=== PATIENT | male | born 1945 | race Caucasian/White ===

== ENCOUNTER → 2016-10-28 | Outpatient (CLI) | payer MEDICARE, BC ==
[~2016-10-28] MED LIST: IOHEXOL 300 MG/ML 75 ML VIAL. IV ONE
--- NOTE | 2016-10-28 10:30 | RAD ---
Difficulty breathing. Contrast imaging through the chest was performed. IV contrast, approximately 75 cc of Omnipaque 300 was administered. MIP images were generated and reviewed. No prior CT imaging of the chest is available. Imaging through the upper abdomen is unremarkable. The thoracic aorta appears unremarkable. No pulmonary emboli are seen. There are a few mediastinal and right hilar lymph nodes. Definite pathologic mediastinal or hilar adenopathy is not seen. There is a small left and a minute right pleural effusion. A dominant soft tissue mass in either lung is not seen. No consolidated pneumonia is seen. Advanced emphysematous or fibrotic changes are not seen. There are occasional small nodules in the left upper lobe. These could be followed along the lines of the Fleischner criteria. Some slight volume loss is seen at the left lung base which may reflect atelectasis or scar. IMPRESSION: Small left and minute right pleural effusions. Minimal volume loss at the left lung base likely reflecting atelectasis or scar. Occasional small pulmonary nodules in the left upper lobe measuring approximately 2 mm in size. Follow-up imaging along the lines of the Fleischner criteria should be considered. Mild mediastinal and right hilar adenopathy. PQRS Compliance Statement: One or more of the following individualized dose reduction techniques were utilized for this examination: 1. Automated exposure control 2. Adjustment of the mA and/or kV according to patient size 3. Use of iterative reconstruction technique
== END | disposition home or self-care (01) ==
LOC: CT 09:15
PROVIDERS: ATTEND Family Medicine
DX: J84.17 Other interstitial pulmonary diseases with fibrosis in diseases classified elsewhere (principal); J90 Pleural effusion, not elsewhere classified; R91.8 Other nonspecific abnormal finding of lung field; R59.0 Localized enlarged lymph nodes; I11.0 Hypertensive heart disease with heart failure; I50.9 Heart failure, unspecified; J45.909 Unspecified asthma, uncomplicated; Z79.01 Long term (current) use of anticoagulants; Z95.1 Presence of aortocoronary bypass graft
CPT/HCPCS: 71260; Q9967

== ENCOUNTER → 2018-01-23 | Outpatient (CLI) | payer MEDICARE, BC ==
[~2018-01-23] MED LIST changes: +IOHEXOL 240 MG/ML 50ML VIAL. ONE
[2018-01-23 10:32] LABS: BASO # 0.1 x10^3/uL (0.0-0.2); BASO % 1 % (0-3); EOS # 0.1 x10^3/uL (0.0-0.7); EOS % 2 % (0-3); HEMATOCRIT 36.3 % (39.0-53.0); HEMOGLOBIN 12.2 g/dL (13.0-17.5); LYMPH # 1.5 x10^3/uL (1.0-4.8); LYMPH % 21 % (24-48); MEAN CORPUSCULAR HEMOGLOBIN 31 pg (25-35); MEAN CORPUSCULAR HGB CONC 34 g/dL (31-37); MEAN CORPUSCULAR VOLUME 92 fL (79-100); MONO # 0.8 x10^3/uL (0.0-1.1); MONO % 11 % (0-9); NEUT # 4.7 x10^3uL (1.8-7.7); NEUT % 65 % (31-73); PLATELET COUNT 145 x10^3/uL (140-400); RED BLOOD COUNT 3.94 x10^6/uL (4.30-5.70); RED CELL DISTRIBUTION WIDTH 15.4 % (11.5-14.5); WHITE BLOOD COUNT 7.2 x10^3/uL (4.0-11.0)
[2018-01-23 10:51] LABS: ALBUMIN 3.2 g/dL (3.4-5.0); ALBUMIN/GLOBULIN RATIO 0.8 (1.0-1.7); CALCIUM 8.5 mg/dL (8.5-10.1); CREATININE 1.2 mg/dL (0.7-1.3); GFR 59.2; POTASSIUM 4.1 mmol/L (3.5-5.1); TOTAL BILIRUBIN 0.6 mg/dL (0.2-1.0); TOTAL PROTEIN 7.3 g/dL (6.4-8.2)
--- NOTE | 2018-01-23 15:08 | RAD ---
CT of the abdomen and pelvis with contrast 01/23/2018 INDICATION: Weight loss. COMPARISON STUDY: CT of the chest October 28, 2016. TECHNIQUE: Multidetector CT imaging of the abdomen and pelvis was obtained following the administration of IV contrast. Enteric contrast was also administered. FINDINGS: Visualized portions of the lung bases demonstrate at least moderate left pleural effusion with underlying compressive atelectasis. The liver gallbladder grossly unremarkable. The adrenal glands, spleen, and pancreas are grossly unremarkable. The bilateral kidneys demonstrate minimal nonspecific stranding are otherwise unremarkable. The bladder is partially decompressed but otherwise unremarkable. The prostate is enlarged with areas of coarse calcification. There is no evidence of bowel obstruction. No evidence of acute inflammatory change involving the bowel is appreciated. Extensive descending and sigmoid colonic diverticulosis is noted. Mildly increased stool seen throughout the colon. Correlate with evidence of constipation. The appendix is grossly unremarkable. No free fluid or free air is seen in the abdomen or pelvis. Significant diffuse atherosclerotic vascular disease is noted. No acute osseous abnormality is identified. IMPRESSION: 1.No evidence of acute intra-abdominal abnormality is identified 2. At least moderate left pleural effusion with underlying compressive atelectasis. 3. Prostamegaly there is a calcification. 4. Descending and sigmoid colonic diverticulosis. CT DOSING PQRS STATEMENT: One or more of the following individualized dose reduction techniques were utilized for this examination: 1. Automated exposure control 2. Adjustment of the mA and/or kV according to patient size 3. Use of iterative reconstruction technique. Electronically signed by: Carson Joyner MD (01/23/2018 3:05 PM) [id number]
[2018-01-23 21:07] LABS: HEMOGLOBIN A1C 7.1 % (4.8-5.6)
[2018-01-25 00:08] LABS: MICRO CREAT RATIO 35.1 mg/g creat (0.0-30.0); MICROALB RD UR 37.4 ug/mL (Not Estab.)
== END | disposition home or self-care (01) ==
LOC: CT 09:06
PROVIDERS: ATTEND Family Medicine
DX: J90 Pleural effusion, not elsewhere classified (principal); K57.30 Diverticulosis of large intestine without perforation or abscess without bleeding; J98.11 Atelectasis; I70.0 Atherosclerosis of aorta; Z88.0 Allergy status to penicillin
CPT/HCPCS: 36415; 74177; 80053; 80061; 82043; 82570; 83036; 85025; Q9966; Q9967

== ENCOUNTER → 2018-02-16 | Outpatient (CLI) | payer MEDICARE, BC ==
--- NOTE | 2018-02-16 13:03 | RAD ---
Examination: CT chest without contrast HISTORY: History of pulmonary infiltrates status post surgery COMPARISON: 10/28/2016 TECHNIQUE: Axial CT images of chest were performed without contrast. Coronal and sagittal reformats are performed Exposure: One or more of the following individualized dose reduction techniques were utilized for this examination: 1. Automated exposure control 2. Adjustment of the mA and/or kV according to patient size 3. Use of iterative reconstruction technique FINDINGS: The visualized thyroid gland grossly appears unremarkable. The central airways are patent. Mild cardiomegaly. Coronary artery calcifications identified. There are patchy airspace opacities identified in the left lung base and in the left lingula likely atelectasis or infiltrates. Moderate left-sided pleural effusion identified.. The visualized noncontrasted liver, spleen, adrenals grossly appears unremarkable. Moderate degenerative changes thoracic spine. IMPRESSION: 1. Patchy airspace opacities identified in the left lingula and left lower lobe lung likely pneumonia or atelectasis. Follow-up to resolution. 2. Mild to moderate left-sided pleural effusion. 3. Coronary artery calcifications. Electronically signed by: Pradeep Ruiz MD (02/16/2018 1:00 PM) [facility]
== END | disposition home or self-care (01) ==
LOC: EDBD 11:35 → CT 11:35
PROVIDERS: ATTEND Internal Medicine Pulmonary Disease
DX: J90 Pleural effusion, not elsewhere classified (principal); I25.10 Atherosclerotic heart disease of native coronary artery without angina pectoris; I51.7 Cardiomegaly; R91.8 Other nonspecific abnormal finding of lung field
CPT/HCPCS: 71250

== ENCOUNTER → 2018-06-14 | Outpatient (CLI) | payer MEDICARE, BC ==
[2018-06-14 16:37] LABS: CALCIUM 8.2 mg/dL (8.5-10.1); CREATININE 1.4 mg/dL (0.7-1.3); GFR 49.5; POTASSIUM 3.4 mmol/L (3.5-5.1)
[2018-06-14 17:29] LABS: BASO % 1 % (0-3); EOS % 1 % (0-3); HEMATOCRIT 37.4 % (39.0-53.0); HEMOGLOBIN 12.8 g/dL (13.0-17.5); LYMPH # 1.2 x10^3/uL (1.0-4.8); LYMPH % 20 % (24-48); MEAN CORPUSCULAR HEMOGLOBIN 30 pg (25-35); MEAN CORPUSCULAR HGB CONC 34 g/dL (31-37); MEAN CORPUSCULAR VOLUME 88 fL (79-100); MONO # 0.5 x10^3/uL (0.0-1.1); MONO % 9 % (0-9); NEUT # 4.1 x10^3uL (1.8-7.7); NEUT % 70 % (31-73); PLATELET COUNT 168 x10^3/uL (140-400); RED BLOOD COUNT 4.27 x10^6/uL (4.30-5.70); RED CELL DISTRIBUTION WIDTH 15.3 % (11.5-14.5); WHITE BLOOD COUNT 5.9 x10^3/uL (4.0-11.0)
--- NOTE | 2018-06-14 17:44 | RAD ---
EXAM: CT Abdomen and Pelvis with IV contrast CLINICAL HISTORY: DIARRHEA AND VOMITING COMPARISON: 02/16/2018, 01/23/2018 TECHNIQUE: Helical CT of the abdomen and pelvis was performed following the administration of intravenous contrast. Axial, coronal and sagittal reformatted images were generated. PQRS compliance statement - One or more of the following individualized dose reduction techniques were utilized for this study: 1. Automated exposure control 2. Adjustment of the mA and/or kV according to patient size 3. Use of iterative reconstruction technique FINDINGS: Lower chest: Small left pleural effusion. Dependent opacities in the left lower lobe likely atelectasis. Right lung base is clear. Abdomen and Pelvis: No focal liver lesion. Gallbladder is normal. No biliary ductal dilatation. Spleen is unremarkable. Adrenal glands and pancreas are unremarkable. Symmetric nephrograms. No focal renal lesion. No hydronephrosis. Appendix is normal. No small or large bowel dilatation. No evidence of bowel obstruction. Moderate colonic stool content. Colonic diverticulosis without evidence for acute diverticulitis. Bladder is unremarkable. Dense atherosclerotic calcifications of aorta without aneurysmal dilatation. No abdominal pelvic ascites. No abdominal or pelvic lymphadenopathy. Small fat-containing right inguinal hernia. Bladder wall thickening with minimal associated fatty filtration, likely cystitis. Bones: Diffusely decreased bone mineral density. Multilevel degenerative changes of the spine are seen. IMPRESSION: 1. Diverticulosis without evidence for acute diverticulitis. 2. No evidence for bowel obstruction. 3. Mild bladder wall thickening may be seen with cystitis. Electronically signed by: Saqib Cates MD (06/14/2018 5:41 PM) [facility]
== END | disposition home or self-care (01) ==
LOC: CT 15:52
PROVIDERS: ATTEND Family Medicine
DX: K57.30 Diverticulosis of large intestine without perforation or abscess without bleeding (principal); K40.90 Unilateral inguinal hernia, without obstruction or gangrene, not specified as recurrent; I70.0 Atherosclerosis of aorta; J90 Pleural effusion, not elsewhere classified; I11.0 Hypertensive heart disease with heart failure; I50.9 Heart failure, unspecified; E11.9 Type 2 diabetes mellitus without complications; Z79.01 Long term (current) use of anticoagulants
CPT/HCPCS: 36415; 74177; 80048; 85025; Q9967

== ENCOUNTER 2018-09-15 09:08 | Inpatient (IN) | payer MEDICARE, BC ==
[~2018-09-15] VITALS: Ht 170.2 cm; Wt 64.2 kg
[2018-09-15] MEDS ORDERED: IV NORMAL SALINE 1,000ML 1,000 ML IV ONE (09:15)
--- NOTE | 2018-09-15 09:40 | PHYS DOC ---
Past History Past Medical History: Diabetes, High Cholesterol, Hypertension, HI, Stroke, Other Past Surgical History: Other Alcohol Use: None Drug Use: None Adult General Chief Complaint Chief Complaint: WEAKNESS/GENERALIZED HPI HPI 73-year-old male presents via EMS with weakness and bilateral knee pain. The patient tells me that he has been feeling weak for a few days. His who accompanies him states that he's been getting around okay until this morning when he could barely get around the bedroom. The patient tells me that the reason is he has bilateral knee pain, worse on the left. He does not state any trauma or falls. He is not exactly clear on whether this pain has been building over time or is sudden. He denies fever or chills. He denies cough, dysuria, urinary frequency. Review of Systems Review of Systems Constitutional: Denies fever or chills [] Eyes: Denies change in visual acuity, redness, or eye pain [] HENT: Denies nasal congestion or sore throat [] Respiratory: Denies cough or shortness of breath [] Cardiovascular: No additional information not addressed in HPI [] GI: Denies abdominal pain, nausea, vomiting, bloody stools or diarrhea [] : Denies dysuria or hematuria [] Musculoskeletal: Bilateral knee pain Integument: Denies rash or skin lesions [] Neurologic: Denies headache, focal weakness or sensory changes [] Endocrine: Denies polyuria or polydipsia [] All other systems were reviewed and found to be within normal limits, except as documented in this note. Current Medications Current Medications Current Medications Medications (Trade) Dose Ordered Sig/[facility] Start Time Stop Time Status Last Admin Dose Admin Sodium Chloride 1,000 ml @ 1,000 mls/hr 1X ONCE 09/15/18 09:15 09/15/18 10:14 Allergies Allergies Allergies Coded Allergies Type Severity Reaction Last Updated Verified Penicillins Allergy Unknown 10/28/16 Yes Sulfa (Sulfonamide Antibiotics) Allergy Unknown 10/28/16 Yes Physical Exam Physical Exam Constitutional: Well developed, well nourished, no acute distress, non-toxic appearance. [] HENT: Normocephalic, atraumatic, bilateral external ears normal, oropharynx moist, no oral exudates, nose normal. [] Eyes: PERRLA, EOMI, conjunctiva normal, no discharge. [] Neck: Normal range of motion, no tenderness, supple, no stridor. [] Cardiovascular:Heart rate regular rhythm, no murmur [] Lungs & Thorax: Bilateral breath sounds clear to auscultation [] Abdomen: Bowel sounds normal, soft, no tenderness, no masses, no pulsatile masses. [] Skin: Warm, dry, no erythema, no rash. Age-related skin changes.[] Back: No tenderness, no CVA tenderness. [] Extremities: No tenderness, no cyanosis, no clubbing, ROM intact, no edema. [] Neurologic: Alert and oriented X 3, normal motor function, normal sensory function, no focal deficits noted. [] Psychologic: Affect normal, judgement normal, mood normal. [] Current Patient Data Vital Signs Vital Signs Date Time Temp Pulse Resp B/P (MAP) Pulse Ox O2 Delivery O2 Flow Rate FiO2 09/15/18 09:24 97.9 87 20 96 Room Air EKG EKG Sinus rhythm, rate 85, normal axis, no ST elevations or depressions.[] Radiology/Procedures Radiology/Procedures [] Impressions: EXAM: CHEST 1 VIEW. HISTORY: Weakness. COMPARISON: 02/16/2018. FINDINGS: A frontal view of the chest is obtained. Opacity in the left base is consistent with a small to moderate pleural effusion along with scarring as seen on prior CT. A right posterior fifth rib fracture appears acute or subacute. There is no pneumothorax. The heart is mildly enlarged. There are changes of coronary artery bypass grafting. IMPRESSION: 1. Chronic small left pleural effusion with adjacent parenchymal scarring. 2. A right fifth rib fracture appears acute to subacute. 3. Mild cardiomegaly. Electronically signed by: Lilly Snow MD (09/15/2018 9:54 AM) [facility] DICTATED AND SIGNED BY: SUSANNE SNOW MD DATE: 09/15/18 0954 CC: ANTONI PLUMMER DO; AMARJIT TRIMBLE MD ~ Course & Med Decision Making Course & Med Decision Making Pertinent Labs and Imaging studies reviewed. (See chart for details) The patient's chest x-ray shows possibly new right sided fifth rib fracture. Other findings. We chronic. See official report for more details. The patient's labs are significant for an elevated potassium of 6.1. He does not appear to have EKG changes. His creatinine is 1.5 with a BUN 43. The patient was given 1 L normal saline on arrival. We will additionally give 1 g of calcium, 500 mL of D 10 with 20 units of insulin, and 40 mg of Lasix IV. I will admit the patient to the hospital. Spoke with Dr. Trimble and he has agreed to admit the patient for further management. [] Dragon Disclaimer Dragon Disclaimer This electronic medical record was generated, in whole or in part, using a voice recognition dictation system. Departure Departure: Impression: Primary Impression: Hyperkalemia Disposition: ADMITTED INPATIENT Admitting Physician: Amarjit Trimble Condition: STABLE Referrals: AMARJIT TRIMBLE MD (PCP) ANTONI PLUMMER DO Sep 15, 2018 09:40
--- NOTE | 2018-09-15 09:57 | RAD ---
EXAM: CHEST 1 VIEW. HISTORY: Weakness. COMPARISON: 02/16/2018. FINDINGS: A frontal view of the chest is obtained. Opacity in the left base is consistent with a small to moderate pleural effusion along with scarring as seen on prior CT. A right posterior fifth rib fracture appears acute or subacute. There is no pneumothorax. The heart is mildly enlarged. There are changes of coronary artery bypass grafting. IMPRESSION: 1. Chronic small left pleural effusion with adjacent parenchymal scarring. 2. A right fifth rib fracture appears acute to subacute. 3. Mild cardiomegaly. Electronically signed by: Lilly Snow MD (09/15/2018 9:54 AM) [facility]
[2018-09-15 10:24] LABS: ALBUMIN 3.5 g/dL (3.4-5.0); ALBUMIN/GLOBULIN RATIO 0.9 (1.0-1.7); BASO # 0.1 x10^3/uL (0.0-0.2); BASO % 1 % (0-3); CALCIUM 9.3 mg/dL (8.5-10.1); CREATININE 1.5 mg/dL (0.7-1.3); EOS # 0.1 x10^3/uL (0.0-0.7); EOS % 1 % (0-3); GFR 45.6; HEMATOCRIT 31.1 % (39.0-53.0); HEMOGLOBIN 10.6 g/dL (13.0-17.5); LYMPH # 1.1 x10^3/uL (1.0-4.8); LYMPH % 14 % (24-48); MEAN CORPUSCULAR HEMOGLOBIN 31 pg (25-35); MEAN CORPUSCULAR HGB CONC 34 g/dL (31-37); MEAN CORPUSCULAR VOLUME 93 fL (79-100); MONO # 0.7 x10^3/uL (0.0-1.1); MONO % 9 % (0-9); NEUT # 5.9 x10^3uL (1.8-7.7); NEUT % 75 % (31-73); PLATELET COUNT 157 x10^3/uL (140-400); RED BLOOD COUNT 3.36 x10^6/uL (4.30-5.70); RED CELL DISTRIBUTION WIDTH 16.4 % (11.5-14.5); TOTAL BILIRUBIN 0.5 mg/dL (0.2-1.0); TOTAL PROTEIN 7.4 g/dL (6.4-8.2); WHITE BLOOD COUNT 7.9 x10^3/uL (4.0-11.0)
[2018-09-15 10:26] LABS: POTASSIUM 6.1 mmol/L (3.5-5.1)
[2018-09-15] MEDS ORDERED: IV DEXTROSE 10% 500 ML IV ONE (10:30)
[2018-09-15] MEDS ORDERED: ONDANSETRON PF 4 MG/2 ML VIAL. IV PRN (10:45)
--- NOTE | 2018-09-15 11:14 | RAD ---
EXAM: KNEE BILAT 3V. HISTORY: Bilateral knee pain and weakness. COMPARISON: None. FINDINGS: No fractures are identified bilaterally. Joint spaces and alignment are maintained bilaterally. Trace joint effusions are present bilaterally. There are dense atherosclerotic calcifications bilaterally. Vascular clips project throughout the left medial leg. IMPRESSION: 1. Trace bilateral joint effusions. No fracture or clear degenerative change for patient age. Electronically signed by: Lilly Snwo MD (09/15/2018 11:11 AM) [facility]
[2018-09-15] MEDS ORDERED: CALCIUM GLUCONATE 1,000 MG/10 ML VIAL IV ONE (11:15)
[2018-09-15] MEDS ORDERED: FUROSEMIDE 40 MG/4 ML VIAL IVP ONE (11:15)
[2018-09-15] MEDS ORDERED: INSULIN REGULAR 100 UNIT/ML 3ML VIAL. IV ONE (11:15)
[2018-09-15] MEDS ORDERED: DEXTROSE 10% IV ONE (11:30)
[2018-09-15] MEDS ORDERED: INSULIN REGULAR IV ONE (11:30)
[2018-09-15] MEDS ORDERED: ISOS60TA2 PO (11:42)
[2018-09-15] MEDS ORDERED: ATOR80TA72 PO (11:42)
[2018-09-15] MEDS ORDERED: CARV6.253 PO (11:42)
[2018-09-15] MEDS ORDERED: TORS20TA2 PO (11:42)
[2018-09-15] MEDS ORDERED: METF500T16 PO (11:42)
[2018-09-15] MEDS ORDERED: LISI-334 PO (11:42)
[2018-09-15 12:48] LABS: BACTERIA,URINE 0 /HPF (0-FEW); BILIRUBIN,URINE NEG (NEG); CLARITY,URINE CLEAR; COLOR,URINE YELLOW; GLUCOSE,URINE NEG (NEG); NITRITE,URINE NEG (NEG); RBC,URINE OCC /HPF (0-2); SQUAMOUS EPITHELIAL CELL,UR OCC /LPF; UROBILINOGEN,URINE 0.2 mg/dL (0.2 mg/dL); WBC,URINE RARE /HPF (0-4)
[2018-09-15 13:00] VITALS: BP 112/64
[2018-09-15] MEDS ORDERED: TIOT4MIS3 INH (13:49)
[2018-09-15] MEDS ORDERED: SPIR25TA5 PO (13:49)
[2018-09-15 13:58] LABS: CALCIUM 9.5 mg/dL (8.5-10.1); CREATININE 1.4 mg/dL (0.7-1.3); GFR 49.4
[2018-09-15 19:30] VITALS: BP 138/88
[2018-09-15] MEDS ORDERED: OLODATEROL HCL INH PRN (19:30)
[2018-09-15] MEDS ORDERED: TIOTROPIUM BR INH PRN (19:30)
[2018-09-15] MEDS: ATORVASTATIN CALCIUM 20 MG TABLET PO SCH (21:11)
[2018-09-15] MEDS: CARVEDILOL 6.25 MG TABLET PO SCH (21:11)
[2018-09-15 23:18] VITALS: BP 119/63
[2018-09-16 05:27] VITALS: BP 120/57
[2018-09-16 07:04] LABS: BASO % 1 % (0-3); EOS # 0.2 x10^3/uL (0.0-0.7); EOS % 3 % (0-3); HEMOGLOBIN 10.2 g/dL (13.0-17.5); LYMPH # 1.1 x10^3/uL (1.0-4.8); LYMPH % 20 % (24-48); MEAN CORPUSCULAR HEMOGLOBIN 31 pg (25-35); MEAN CORPUSCULAR HGB CONC 34 g/dL (31-37); MEAN CORPUSCULAR VOLUME 93 fL (79-100); MONO # 0.6 x10^3/uL (0.0-1.1); MONO % 10 % (0-9); NEUT # 3.8 x10^3uL (1.8-7.7); NEUT % 67 % (31-73); PLATELET COUNT 152 x10^3/uL (140-400); RED BLOOD COUNT 3.24 x10^6/uL (4.30-5.70); RED CELL DISTRIBUTION WIDTH 15.8 % (11.5-14.5); WHITE BLOOD COUNT 5.8 x10^3/uL (4.0-11.0)
[2018-09-16 07:21] LABS: ALBUMIN 3.2 g/dL (3.4-5.0); ALBUMIN/GLOBULIN RATIO 0.9 (1.0-1.7); CALCIUM 9.2 mg/dL (8.5-10.1); CREATININE 1.3 mg/dL (0.7-1.3); GFR 53.8; POTASSIUM 5.1 mmol/L (3.5-5.1); TOTAL BILIRUBIN 0.5 mg/dL (0.2-1.0); TOTAL PROTEIN 6.9 g/dL (6.4-8.2)
[2018-09-16] MEDS: metFORMIN 500 MG TABLET PO SCH ×2 (08:35→16:51)
[2018-09-16] MEDS: TORSEMIDE 20 MG TABLET. PO SCH (08:35)
[2018-09-16] MEDS: CARVEDILOL 6.25 MG TABLET PO SCH ×2 (08:36→16:51)
[2018-09-16] MEDS: LISINOPRIL 20 MG TABLET PO SCH (08:38)
[2018-09-16] MEDS: ISOSORBIDE MONONITRATE ER 30 MG TAB.ER.24H PO SCH (08:38)
[2018-09-16] MEDS ORDERED: SPIRONOLACTONE 25 MG TABLET PO SCH (09:00)
[2018-09-16] MEDS ORDERED: ACETAMINOPHEN 500 MG TABLET PO PRN (12:00)
[2018-09-16 16:20] VITALS: BP 117/61
[2018-09-16 16:22] VITALS: BP 117/61
--- NOTE | 2018-09-16 18:26 | HP ---
ADMIT DATE: 09/15/2018 HISTORY OF PRESENT ILLNESS: A 73-year-old male in with generalized weakness, unable to stand up. He has become increasingly debilitated and unable to move. The patient notes he has had a gradual decrease and whether or not he has had this problem. He denies chest pain or shortness of breath, although he does have quite a bit of feebleness throughout. The patient was admitted for further evaluation and treatment. PAST MEDICAL HISTORY: Stroke, type 2 diabetes poorly controlled, frequent falls, hypertension, hypercholesterolemia. PAST SURGICAL HISTORY: Coronary bypass surgery. FAMILY HISTORY: Father with cancer, mother with cancer and some family history of diabetes. ALLERGIES: PENICILLIN AND SULFA. MEDICATIONS: Reconciled in the usual fashion. SOCIAL HISTORY: The patient used to be a smoker, although was quick and we will continue to monitor him there. He is a DNR and he denies alcohol drinking at the present time. PHYSICAL EXAMINATION: GENERAL: This is a pleasant white male, looking older than stated age, very frail. VITAL SIGNS: Blood pressure only 96/61, respiratory rate 18, pulse 103, afebrile. The patient is alert and oriented. Speech is fluent, spontaneous, appropriate. LUNGS: Diminished throughout, but clear. CARDIOVASCULAR: Regular sinus rhythm, S1, S2, without murmur, rub, thrill, or extra heart sounds. ABDOMEN: Soft, nontender, no rebounding or guarding. Positive bowel sounds, no hepatosplenomegaly was noted. EXTREMITIES: No clubbing, cyanosis. The patient has bruising to the knees. LABORATORY DATA: The patient's chest x-ray shows bilateral pleural effusions. Labs show slightly low hemoglobin of 10.2 and the blood sugars have been 170. We will continue to monitor the patient accordingly, make further evaluation. Also was noted his potassium was extremely high at 6.1 when he first came in and has depreciated since then back down to 5.1. AMARJIT TRIMBLE MD DR: REJI/kevin JOB#: [id number] / [id number]
[2018-09-16 19:48] VITALS: BP 97/58
[2018-09-16] MEDS: ATORVASTATIN CALCIUM 20 MG TABLET PO SCH (20:42)
[2018-09-17] VITALS (7 sets, daily range): BP systolic 80–120; BP diastolic 50–69
[2018-09-17 07:04] LABS: CALCIUM 9.1 mg/dL (8.5-10.1); CREATININE 1.7 mg/dL (0.7-1.3); GFR 39.5; POTASSIUM 5.6 mmol/L (3.5-5.1)
[2018-09-17 07:05] LABS: BASO # 0.1 x10^3/uL (0.0-0.2); BASO % 1 % (0-3); EOS # 0.2 x10^3/uL (0.0-0.7); EOS % 3 % (0-3); HEMATOCRIT 30.2 % (39.0-53.0); HEMOGLOBIN 10.3 g/dL (13.0-17.5); LYMPH # 1.3 x10^3/uL (1.0-4.8); LYMPH % 20 % (24-48); MEAN CORPUSCULAR HEMOGLOBIN 32 pg (25-35); MEAN CORPUSCULAR HGB CONC 34 g/dL (31-37); MEAN CORPUSCULAR VOLUME 93 fL (79-100); MONO # 0.6 x10^3/uL (0.0-1.1); MONO % 10 % (0-9); NEUT # 4.1 x10^3uL (1.8-7.7); NEUT % 67 % (31-73); PLATELET COUNT 145 x10^3/uL (140-400); RED BLOOD COUNT 3.25 x10^6/uL (4.30-5.70); RED CELL DISTRIBUTION WIDTH 15.7 % (11.5-14.5); WHITE BLOOD COUNT 6.2 x10^3/uL (4.0-11.0)
--- NOTE | 2018-09-17 07:49 | EKG ---
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
[2018-09-17] MEDS: LISINOPRIL 20 MG TABLET PO SCH (09:00)
[2018-09-17] MEDS: TORSEMIDE 20 MG TABLET. PO SCH (09:00)
[2018-09-17] MEDS: ISOSORBIDE MONONITRATE ER 30 MG TAB.ER.24H PO SCH (09:00)
[2018-09-17] MEDS ORDERED: IV NORMAL SALINE 1,000ML 1,000 ML IV SCH (09:15)
[2018-09-17] MEDS: metFORMIN 500 MG TABLET PO SCH ×2 (09:19→17:16)
--- NOTE | 2018-09-17 10:06 | RAD ---
Chest radiograph 09/17/2018 9:26 AM INDICATION: VQ scan COMPARISON: September 15, 2018 TECHNIQUE: Portable upright frontal view of the chest is provided. FINDINGS: The cardiomediastinal silhouette is similar in appearance. Median sternotomy changes are present. There is increase in moderate left pleural effusion with adjacent compressive atelectasis versus infiltrate. Mild interstitial changes are present, stable. No pneumothorax. IMPRESSION: Increase in moderate left pleural effusion with adjacent compressive atelectasis versus infiltrate. Electronically signed by: Ines Arreola MD (09/17/2018 10:03 AM) [facility]
--- NOTE | 2018-09-17 12:40 | RAD ---
NUCLEAR MEDICINE VENTILATION PERFUSION SCAN History: Elevated d-dimer. Comparison: AP chest, same day. Technique: Patient initially ventilated with 9 mCi of xenon-133 gas. Anterior and posterior imaging of the lungs during initial breath-hold, equilibrium and, washout phase images is performed. Perfusion portion performed after intravenous administration of 5.5 mCi Technetium 99m MAA. Multiple projection planar images of the lungs were obtained. Findings: The initial breath-hold ventilation images are relatively homogeneous. There is no significant retention of tracer on the washout phase images. Perfusion images demonstrate a triple matched defect in the left lung base. Moderate left pleural effusion on chest radiograph is noted. IMPRESSION: Intermediate probability for pulmonary embolus. Electronically signed by: Mark Lewis MD (09/17/2018 12:38 PM) [id number]
[2018-09-17] MEDS: CARVEDILOL 12.5 MG TABLET PO SCH (17:18)
[2018-09-17] MEDS: IPRATRPIUM/ALBUTEROL 0.5/2.5MG 3 ML NEBU. NEB SCH (20:30)
[2018-09-17] MEDS ORDERED: DEXTROSE 50% 25 GM / 50ML DISP.SYRIN. IV PRN (20:45)
[2018-09-17] MEDS: LACTOBACILLUS RHAMNOSUS GG 1 CAPSULE. PO SCH (21:02)
[2018-09-17] MEDS: APIXABAN 5 MG TABLET. PO SCH (21:03)
[2018-09-17] MEDS: ATORVASTATIN CALCIUM 20 MG TABLET PO SCH (21:04)
[2018-09-18 04:04] VITALS: BP 116/61
[2018-09-18 06:20] LABS: CALCIUM 9.1 mg/dL (8.5-10.1); CREATININE 1.4 mg/dL (0.7-1.3); GFR 49.4
[2018-09-18] MEDS: INSULIN LISPRO 300 UNITS/3 ML INSULN.PEN. SQ SCH ×3 (08:00→17:07)
[2018-09-18] MEDS: LISINOPRIL 20 MG TABLET PO SCH (09:00)
[2018-09-18] MEDS: ISOSORBIDE MONONITRATE ER 30 MG TAB.ER.24H PO SCH (09:00)
[2018-09-18] MEDS: APIXABAN 5 MG TABLET. PO SCH ×2 (09:02→20:59)
[2018-09-18] MEDS: LACTOBACILLUS RHAMNOSUS GG 1 CAPSULE. PO SCH ×2 (09:02→20:59)
[2018-09-18] MEDS: TORSEMIDE 20 MG TABLET. PO SCH (09:03)
[2018-09-18] MEDS: CARVEDILOL 12.5 MG TABLET PO SCH ×2 (09:03→17:05)
[2018-09-18] MEDS: IPRATRPIUM/ALBUTEROL 0.5/2.5MG 3 ML NEBU. NEB SCH ×2 (09:40→19:54)
[2018-09-18 11:46] VITALS: BP 99/63
[2018-09-18 15:09] VITALS: BP 118/71
[2018-09-18 16:31] VITALS: BP 106/67
--- NOTE | 2018-09-18 17:25 | PN ---
DATE: SUBJECTIVE: The patient says he is feeling little bit better today. The patient is still receiving PT, OT, still needs ____ skilled care. Blood pressure seems to be about stable 120/60, respiration rate 20, pulse 83, afebrile. The patient's labs showed some concern as far as his potassium has gone back up. He will stop off his spironolactone and metformin. The patient will be on sliding scale and otherwise will continue to be monitored there. Otherwise, his V/Q scan showed intermediate probability, probably related to the effusion but for tonight we will go ahead and place him on Eliquis. Continue to monitor him on that until he gets into further physical activity. OBJECTIVE: VITAL SIGNS: Otherwise, the patient's lungs are diminished throughout, poor movement of air. CARDIOVASCULAR: Regular sinus rhythm, S1, S2, with 1/6 systolic ejection murmur. ABDOMEN: Soft, nontender. IMPRESSION AND PLAN: The patient continued to be monitored here in the ICU for now and possibly skilled unit. Impression, therefore, generalized weakness, failure to thrive, possible intermediate probability of pulmonary embolus and severe degenerative changes, type 2 diabetes, mild dementia, hyperkalemia, chronic kidney disease stage 3. The patient is a DNR. AMARJIT TRIMBLE MD DR: REJI/kevin JOB#: [id number] / [id number]
[2018-09-18 19:12] VITALS: BP 103/65
[2018-09-18] MEDS: ATORVASTATIN CALCIUM 20 MG TABLET PO SCH (21:00)
[2018-09-18 22:50] VITALS: BP 117/66
[2018-09-19 05:44] VITALS: BP 107/69
[2018-09-19 06:09] LABS: BASO % 1 % (0-3); EOS # 0.1 x10^3/uL (0.0-0.7); EOS % 2 % (0-3); HEMATOCRIT 28.1 % (39.0-53.0); HEMOGLOBIN 9.5 g/dL (13.0-17.5); LYMPH # 0.9 x10^3/uL (1.0-4.8); LYMPH % 17 % (24-48); MEAN CORPUSCULAR HEMOGLOBIN 31 pg (25-35); MEAN CORPUSCULAR HGB CONC 34 g/dL (31-37); MEAN CORPUSCULAR VOLUME 93 fL (79-100); MONO # 0.6 x10^3/uL (0.0-1.1); MONO % 11 % (0-9); NEUT # 3.7 x10^3uL (1.8-7.7); NEUT % 70 % (31-73); PLATELET COUNT 137 x10^3/uL (140-400); RED BLOOD COUNT 3.02 x10^6/uL (4.30-5.70); RED CELL DISTRIBUTION WIDTH 15.2 % (11.5-14.5); WHITE BLOOD COUNT 5.3 x10^3/uL (4.0-11.0)
[2018-09-19 06:16] LABS: CALCIUM 9.1 mg/dL (8.5-10.1); CREATININE 1.4 mg/dL (0.7-1.3); GFR 49.4; POTASSIUM 4.8 mmol/L (3.5-5.1)
[2018-09-19] MEDS: INSULIN LISPRO 300 UNITS/3 ML INSULN.PEN. SQ SCH ×3 (08:00→17:00)
[2018-09-19] MEDS: CARVEDILOL 12.5 MG TABLET PO SCH (08:00)
[2018-09-19] MEDS: APIXABAN 5 MG TABLET. PO SCH (08:15)
[2018-09-19] MEDS: LACTOBACILLUS RHAMNOSUS GG 1 CAPSULE. PO SCH ×2 (08:43→20:25)
[2018-09-19] MEDS: ISOSORBIDE MONONITRATE ER 30 MG TAB.ER.24H PO SCH (08:49)
[2018-09-19] MEDS: TORSEMIDE 20 MG TABLET. PO SCH (08:51)
[2018-09-19] MEDS: LISINOPRIL 20 MG TABLET PO SCH (08:51)
[2018-09-19] MEDS: IPRATRPIUM/ALBUTEROL 0.5/2.5MG 3 ML NEBU. NEB SCH ×2 (09:55→20:03)
[2018-09-19 11:09] VITALS: BP 103/65
[2018-09-19 15:46] VITALS: BP 101/65
[2018-09-19] MEDS: CARVEDILOL 6.25 MG TABLET PO SCH (17:00)
--- NOTE | 2018-09-19 18:30 | PN ---
DATE: 09/18/2018 SUBJECTIVE: A 73-year-old gentleman came in with generalized weakness and falling. The patient went down for a thoracentesis, had a pleural effusion in his left lobe causing him some problems with breathing. The patient was aspirated apparently with thoracentesis without ____, resting fairly comfortably now. Still complains of knee pain, though. OBJECTIVE: VITAL SIGNS: Blood pressure 106/____, pulse 80. GENERAL: The patient is alert and oriented. LUNGS: Diminished, particularly in that left lower lobe. CARDIOVASCULAR: Regular sinus, S1, S2, without murmur, rub, thrill, or extra heart sounds. LABORATORY DATA: The patient's potassium still elevated at ____, creatinine down to 1.4. PLAN: We will go ahead and continue to monitor the patient, decreased his blood pressure medications including lisinopril, discontinued the spironolactone, kept him on low dose Eliquis just in case. He is mobile, but not terribly so, but he has ____. IMPRESSION: Generalized weakness, pleural effusion, hyperkalemia, chronic kidney disease stage 3 as well as type 2 diabetes, poorly controlled; dementia. AMARJIT TRIMBLE MD DR: REJI/kevin JOB#: [id number] / [id number]
[2018-09-19 19:09] VITALS: BP 117/68
[2018-09-19] MEDS: ATORVASTATIN CALCIUM 20 MG TABLET PO SCH (20:25)
[2018-09-19 23:21] VITALS: BP 125/69
--- NOTE | 2018-09-19 23:21 | PN ---
DATE: SUBJECTIVE: A 73-year-old male patient, basically has got a pleural effusion, not able to do thoracentesis at the present time due to the fact that he was on Eliquis. The patient is still extremely weak, having difficulty moving, requires PT, OT to assist him and although he is ambulatory and moving around, we will discontinue the Eliquis, so that possibly we could do the thoracentesis here in a couple of days. Otherwise, the patient's blood pressure medications have been adjusted downward. OBJECTIVE: VITAL SIGNS: Blood pressure 105/60, respiratory rate 15, pulse 90, afebrile. GENERAL: The patient is alert and oriented x 3. LUNGS: Diminished, particularly in the left lower lobe. CARDIOVASCULAR: Irregular rhythm. ABDOMEN: Soft, nontender, no rebounding or guarding. Positive bowel sounds. EXTREMITIES: No clubbing, cyanosis or edema. NEUROLOGIC: Intact. LABORATORY DATA: The patient's potassium has come down to 4.8 and creatinine originally as high as 1.7, is now down to 1.4. The patient's BMP still slightly elevated, but probably related to his pleural effusion. Otherwise, we will continue to monitor the patient accordingly, make further evaluation on him as indicated. Continue PT, OT. IMPRESSION: Left pleural effusion, generalized weakness, rule out malignancy, and make further evaluation on him as indicated. AMARJIT TRIMBLE MD DR: REJI/kevin JOB#: [id number] / [id number]
[2018-09-20 05:36] VITALS: BP 128/76
[2018-09-20] MEDS: LACTOBACILLUS RHAMNOSUS GG 1 CAPSULE. PO SCH ×2 (07:51→20:48)
[2018-09-20] MEDS: ISOSORBIDE MONONITRATE ER 30 MG TAB.ER.24H PO SCH (07:52)
[2018-09-20] MEDS: LISINOPRIL 10 MG TABLET PO SCH (07:52)
[2018-09-20] MEDS: IPRATRPIUM/ALBUTEROL 0.5/2.5MG 3 ML NEBU. NEB SCH ×2 (07:53→20:30)
[2018-09-20] MEDS: CARVEDILOL 6.25 MG TABLET PO SCH ×2 (07:53→17:42)
[2018-09-20] MEDS: INSULIN LISPRO 300 UNITS/3 ML INSULN.PEN. SQ SCH ×3 (07:53→16:36)
[2018-09-20] MEDS: TORSEMIDE 20 MG TABLET. PO SCH (07:53)
[2018-09-20 10:35] VITALS: BP 131/67
--- NOTE | 2018-09-20 14:56 | PN ---
DATE: SUBJECTIVE: A 73-year-old male. He is on regular Med/Surg floor. He is being prepared for a thoracentesis. Apparently, his Eliquis was in the way, so they have to hold it off for a couple of days. Otherwise, he is feeling fairly good. OBJECTIVE: VITAL SIGNS: Blood pressure 130/60, respiratory rate 20, pulse 90, afebrile. GENERAL: The patient is alert and oriented. LUNGS: Diminished throughout, particularly in the left lower quadrant. CARDIOVASCULAR: Irregular rhythm. ABDOMEN: Soft, nontender, +1 edema. NEUROLOGIC: Alert, still very tired appearing. He needs to go ahead and continue to move around more and he will end up having the thoracentesis tomorrow. AMARJIT TRIMBLE MD DR: REJI/kevin JOB#: [id number] / [id number]
[2018-09-20 15:16] VITALS: BP 115/56
[2018-09-20 19:14] VITALS: BP 94/56
[2018-09-20] MEDS: ATORVASTATIN CALCIUM 20 MG TABLET PO SCH (20:49)
[2018-09-20 22:58] VITALS: BP 113/67
[2018-09-21 05:25] VITALS: BP 108/61
[2018-09-21 06:28] LABS: CALCIUM 8.7 mg/dL (8.5-10.1); CREATININE 1.4 mg/dL (0.7-1.3); GFR 49.4; POTASSIUM 4.2 mmol/L (3.5-5.1)
[2018-09-21 06:36] LABS: BASO % 1 % (0-3); EOS # 0.1 x10^3/uL (0.0-0.7); EOS % 3 % (0-3); HEMATOCRIT 26.7 % (39.0-53.0); LYMPH # 0.8 x10^3/uL (1.0-4.8); LYMPH % 17 % (24-48); MEAN CORPUSCULAR HEMOGLOBIN 32 pg (25-35); MEAN CORPUSCULAR HGB CONC 34 g/dL (31-37); MEAN CORPUSCULAR VOLUME 94 fL (79-100); MONO # 0.6 x10^3/uL (0.0-1.1); MONO % 13 % (0-9); NEUT # 3.3 x10^3uL (1.8-7.7); NEUT % 67 % (31-73); PLATELET COUNT 135 x10^3/uL (140-400); RED BLOOD COUNT 2.83 x10^6/uL (4.30-5.70); RED CELL DISTRIBUTION WIDTH 15.5 % (11.5-14.5); WHITE BLOOD COUNT 4.9 x10^3/uL (4.0-11.0)
[2018-09-21] MEDS: LISINOPRIL 10 MG TABLET PO SCH (07:41)
[2018-09-21] MEDS: CARVEDILOL 6.25 MG TABLET PO SCH ×2 (07:41→17:25)
[2018-09-21] MEDS: ISOSORBIDE MONONITRATE ER 30 MG TAB.ER.24H PO SCH (07:41)
[2018-09-21] MEDS: INSULIN LISPRO 300 UNITS/3 ML INSULN.PEN. SQ SCH ×3 (08:00→17:40)
[2018-09-21 10:49] VITALS: BP 115/72
[2018-09-21] MEDS: IPRATRPIUM/ALBUTEROL 0.5/2.5MG 3 ML NEBU. NEB SCH (11:00)
[2018-09-21] MEDS ORDERED: CYANOCOBALAMIN (VITAMIN B-12) 1,000 MCG TABLET. PO SCH (12:00)
[2018-09-21] MEDS ORDERED: FERROUS SULFATE 325 MG TABLET. PO SCH (12:00)
[2018-09-21] MEDS ORDERED: CHOLECALCIFEROL (VITAMIN D3) 50,000 UNIT CAPSULE PO SCH (12:00)
[2018-09-21 12:10] LABS: BF CLARITY CLOUDY; BF COLOR RED; BF MON % 98 %; BF PMN % 2 %; BF RBC COUNT 27298; BF SOURCE THORACENTESIS; BF WBC COUNT 2097
[2018-09-21 12:11] LABS: BF OTHER % 0 %
--- NOTE | 2018-09-21 12:28 | RAD ---
Ultrasound Guided Thoracentesis History: Left pleural effusion. Procedure: Risk and benefits of procedure were discussed with the patient. Written and verbal informed consent was obtained. Ultrasound imaging was performed to identify an appropriate pocket of pleural effusion in the left hemithorax. Site on the skin was marked. The skin was prepped and draped in usual sterile fashion. Local anesthesia was obtained with 1% lidocaine. Small skin incision was made. A 6 Occ[place] Moec-G-Acgdhmpy needle and catheter were inserted into the pleural space without difficulty. Pleural location was confirmed with aspiration of a small amount of fluid. The catheter was advanced over the needle, and the needle was removed. 50 cc of serosanguineous fluid was initially aspirated with syringe. Catheter was attached to suction. An additional 500 cc of fluid was removed, for a total of 550 cc. Catheter was then removed and local pressure was applied. Patient tolerated the procedure well without evidence of immediate complication. Post procedure radiograph will be obtained in one hour. That report will be dictated separately. Electronically signed by: Ross Nieves MD (09/21/2018 12:26 PM) [id number]
[2018-09-21] MEDS: TORSEMIDE 20 MG TABLET. PO SCH (12:46)
[2018-09-21] MEDS: LACTOBACILLUS RHAMNOSUS GG 1 CAPSULE. PO SCH (12:46)
--- NOTE | 2018-09-21 12:54 | PN ---
DATE: SUBJECTIVE: A 73-year-old male in with generalized weakness, falling, severe knee pain, thoracentesis needed today for a moderately large pleural effusion in his left lobe, which may be contributing to some of his weakness. The patient is being prepped for that. He has been off his Eliquis for the last couple of days and we will continue to monitor that. Hemoglobin down to 9 and 26. We will do fecal occult he needs B12, vitamin D and iron supplementation. PHYSICAL EXAMINATION: VITAL SIGNS: Blood pressure is still low at 110/60, respiration 18, pulse 90, afebrile. GENERAL: The patient is alert and oriented. LUNGS: Diminished, but clear. Primarily decreased on the left lower quadrant. CARDIOVASCULAR: Regular sinus rhythm. ABDOMEN: Soft, nontender. EXTREMITIES: Knees marked hypertrophy consistent with degenerative arthritis. PLAN: Patient will go ahead for further evaluation. IMPRESSION: Generalized weakness, peripheral neuropathy possibly to malignancy, anemia of unknown etiology. At the present time, vitamin D, vitamin B12 and iron deficiency is noted as well as mild dementia. Weight loss and generalized weakness and falling. AMARJIT TRIMBLE MD DR: REJI/kevin JOB#: [id number] / [id number]
--- NOTE | 2018-09-21 13:15 | RAD ---
Chest radiograph 09/21/2018 11:15 AM INDICATION: Postthoracentesis COMPARISON: September 17, 2018 TECHNIQUE: Portable upright frontal view of the chest is provided. FINDINGS: The cardiomediastinal silhouette is within normal limits. Decrease in size of previously seen moderate left pleural effusion, now small. There is persistent left basilar subsegmental atelectasis versus infiltrate. Right lung appears clear. Median sternotomy changes are present. No pneumothorax. IMPRESSION: Status post left-sided thoracentesis with decrease in size of now small left pleural effusion without evidence for pneumothorax. Electronically signed by: Ines Arreola MD (09/21/2018 1:12 PM) [id number]
[2018-09-21] MEDS ORDERED: DICLOFENAC SODIUM 1% TOPICAL GEL 100GM TUBE. TP SCH (14:00)
[2018-09-21 15:50] VITALS: BP 115/70
[2018-09-21 17:25] VITALS: BP 115/70
[2018-09-21] MEDS ORDERED: CEFT1FRO2 IV (19:53)
[2018-09-21] MEDS ORDERED: CYAN100031 PO (19:53)
[2018-09-21] MEDS ORDERED: LACT1CAP12 PO (19:53)
[2018-09-21] MEDS ORDERED: IPRA3AMP29 NEB (19:53)
[2018-09-21] MEDS ORDERED: FERR325T14 PO (19:53)
[2018-09-21] MEDS ORDERED: DICL100G18 TP (19:53)
[2018-09-21] MEDS ORDERED: ACET500T68 PO (19:53)
[2018-09-21] MEDS ORDERED: CHOL500016 PO (19:53)
[2018-09-21] MEDS ORDERED: ISOS30TA4 PO (19:53)
[2018-09-22] MEDS ORDERED: LISINOPRIL 5 MG TABLET. PO SCH (09:00)
--- NOTE | 2018-09-24 16:05 | PATHOLOGY ---
Note [facility] Accession Number: [id number] TESTS RESULT FLAG UNITS REF RANGE LAB Clinician Provided Cytology Information No. of containers..01 Other (Miscellaneous) Source: LEFT PLEURAL FLUID DIAGNOSIS: LEFT PLEURAL FLUID INCONCLUSIVE. RARE ATYPICAL CELLS ARE PRESENT. MESOTHELIAL CELLS ARE PRESENT. THIS INTERPRETATION INCLUDES EVALUATION OF A CELL BLOCK. Signed out by: 02 Altaf Abraham MD, Pathologist NPI- [id number] Performed by: Camila Flores, [employer] ([facility]) Mark Castellanos [employer] ([facility]) Gross description: 01 23ML, RED, CLOUDY /LCS FLAG LEGEND: L-Low Normal,H-High Normal,LL-Alert Low,HH-Alert High <-Panic Low,>-Panic High,A-Abnormal,AA-Critical Abnormal Performed at: [address] [place] [address] Marlon Toney MD, 02 [facility] [address] [place] [address] Royce Langford MD, Specimen Comment: A duplicate report has been generated due to demographic updates. Performed at: [address], [place], [place] [id number] MD Marlon Toney MD Phone: [phone]
--- NOTE | 2018-10-16 21:43 | DS ---
DATE OF DISCHARGE: 09/21/2018 HOSPITAL COURSE: A 73-year-old male who was admitted on 09/15/2018, generalized weakness, unable to stand up and became increasingly debilitated and unable to move. The patient has also increased shortness of breath as well. The patient's x-ray showed bilateral pleural effusion. He also was noted to have problems with electrolytes as well, failure to thrive, intermediate probability of pulmonary embolus and was placed on a blood thinner for such. The patient also had type 2 diabetes and dementia. Also, her potassium was elevated. We made adjustments in his medications and brought his potassium down to 4.2. AMARJIT TRIMBLE MD DR: REJI/kevin JOB#: [id number] / [id number]
--- NOTE | 2018-10-16 21:48 | DS ---
DATE OF DISCHARGE: 09/21/2018 HOSPITAL COURSE: A 73-year-old male admitted with generalized weakness, hyperkalemia and pleural effusions having difficulty with breathing, generalized weakness, unable to get out of bed. Initially, his potassium was 6.1 and came down to 4.2. The patient made excellent progress during the rest of his hospitalization. He was also noted to have congestive heart failure. He went through a thoracentesis, paracentesis through Radiology and things were approached there without any complication. The patient still had generalized weakness and was noted to require further skilled situations, so he was transferred to the skilled unit. In any case, the patient made reasonably good progress. A path report on the pleural effusion from the noodle maker showed her atypical cells, mesothelial cells, but other than that, I believe there was no obvious tumor cells noted in the thoracentesis. The patient tolerated the procedure well and he made fairly good progress, but he had significant problems overall and was transferred to the skilled unit. IMPRESSION: 1. Bilateral pleural effusion, hyperkalemia, generalized weakness, peripheral neuropathy, possibly secondary to malignancy and anemia of unknown etiology. The patient also type 2 diabetes, under poor control, acute on top of chronic diastolic heart failure, failure to thrive, adult as well as mild dementia, hearing loss, chronic kidney disease, stage 3, poorly controlled and also mild protein malnutrition. The patient will be kept on a diabetic diet, low potassium and then transferred to the skilled unit here at [facility] for further rehabilitation. See MRAD. AMARJIT TRIMBLE MD DR: REJI/kevin JOB#: [id number] / [id number]
== END 2018-09-21 18:41 | disposition swing bed (61) | DRG 186 ==
LOC: ER 09:08 → 1 SOUTH 12:42 → ICU 22:10 → 1 SOUTH 09-18 06:08
PROVIDERS: ADMIT Family Medicine; ATTEND Family Medicine
PROC: 0W9B3ZZ Drainage of Left Pleural Cavity, Percutaneous Approach (ICD-10-PCS; principal; 2018-09-21)
DX: J90 Pleural effusion, not elsewhere classified (principal); N17.0 Acute kidney failure with tubular necrosis; S22.31XA Fracture of one rib, right side, initial encounter for closed fracture; E87.5 Hyperkalemia; E11.65 Type 2 diabetes mellitus with hyperglycemia; E61.1 Iron deficiency; E78.00 Pure hypercholesterolemia, unspecified; F03.90 Unspecified dementia, unspecified severity, without behavioral disturbance, psychotic disturbance, mood disturbance, and anxiety; J43.8 Other emphysema; G62.9 Polyneuropathy, unspecified; I10 Essential (primary) hypertension; Z66 Do not resuscitate; Z80.9 Family history of malignant neoplasm, unspecified; Z83.3 Family history of diabetes mellitus; Z86.73 Personal history of transient ischemic attack (TIA), and cerebral infarction without residual deficits; Z87.891 Personal history of nicotine dependence; I25.2 Old myocardial infarction; Z88.0 Allergy status to penicillin; Z88.2 Allergy status to sulfonamides; Z95.1 Presence of aortocoronary bypass graft
CPT/HCPCS: 32555; 36415; 71045; 73562; 76942; 78582; 80048; 80053; 81001; 82306; 82607; 82945; 82947; 83540; 83550; 83605; 83615; 83880; 84157; 84443; 84484; 85025; 85379; 85610; 85651; 85730; 87070; 87641; 88112; 88305; 89050; 93005; 94640; 96361; 96365; 96374; 96375; A9540; A9558; J0610; J0696; J1815; J1940; J1956; J2405; J7060; J7620; 97110; 97530; 97535; 99285-25; J7030

== ENCOUNTER 2018-09-18 09:00 | Inpatient (IN) | payer MEDICARE, BC ==
[~2018-09-18] VITALS: Ht 170.2 cm; Wt 64.7 kg
[~2018-09-18 09:00] MED LIST changes: +ATOR80TA72 PO; +CARV6.253 PO; -IOHEXOL 240 MG/ML 50ML VIAL. ONE; -IOHEXOL 300 MG/ML 75 ML VIAL. IV ONE; +ISOS60TA2 PO; +LISI-334 PO; +METF500T16 PO; +SPIR25TA5 PO; +TIOT4MIS3 INH; +TORS20TA2 PO
[2018-09-21] MEDS ORDERED: DICLOFENAC SODIUM 1% TOPICAL GEL 100GM TUBE. TP PRN (19:45)
[2018-09-21] MEDS ORDERED: ISOS30TA4 PO (19:53)
[2018-09-21] MEDS ORDERED: LACT1CAP12 PO (19:53)
[2018-09-21] MEDS ORDERED: CHOL500016 PO (19:53)
[2018-09-21] MEDS ORDERED: IPRA3AMP29 NEB (19:53)
[2018-09-21] MEDS ORDERED: FERR325T14 PO (19:53)
[2018-09-21] MEDS ORDERED: ACET500T68 PO (19:53)
[2018-09-21] MEDS ORDERED: CYAN100031 PO (19:53)
[2018-09-21] MEDS ORDERED: CEFT1FRO2 IV (19:53)
[2018-09-21] MEDS ORDERED: DICL100G18 TP (19:53)
[2018-09-21] MEDS ORDERED: DEXTROSE 50% 25 GM / 50ML DISP.SYRIN. IV PRN (20:00)
[2018-09-21] MEDS: LACTOBACILLUS RHAMNOSUS GG 1 CAPSULE. PO SCH (20:39)
[2018-09-21] MEDS: ATORVASTATIN CALCIUM 20 MG TABLET PO SCH (20:40)
[2018-09-21] MEDS: IPRATRPIUM/ALBUTEROL 0.5/2.5MG 3 ML NEBU. NEB SCH (21:00)
[2018-09-21 21:11] VITALS: BP 110/68
[2018-09-22 05:41] VITALS: BP 121/71
[2018-09-22 07:04] LABS: CALCIUM 8.7 mg/dL (8.5-10.1); CREATININE 1.4 mg/dL (0.7-1.3); GFR 49.4
[2018-09-22 07:06] LABS: BASO % 1 % (0-3); EOS # 0.2 x10^3/uL (0.0-0.7); EOS % 2 % (0-3); HEMATOCRIT 27.3 % (39.0-53.0); HEMOGLOBIN 9.2 g/dL (13.0-17.5); LYMPH # 0.9 x10^3/uL (1.0-4.8); LYMPH % 12 % (24-48); MEAN CORPUSCULAR HEMOGLOBIN 32 pg (25-35); MEAN CORPUSCULAR HGB CONC 34 g/dL (31-37); MEAN CORPUSCULAR VOLUME 94 fL (79-100); MONO # 0.9 x10^3/uL (0.0-1.1); MONO % 12 % (0-9); NEUT # 5.5 x10^3uL (1.8-7.7); NEUT % 74 % (31-73); PLATELET COUNT 148 x10^3/uL (140-400); RED BLOOD COUNT 2.89 x10^6/uL (4.30-5.70); RED CELL DISTRIBUTION WIDTH 15.8 % (11.5-14.5); WHITE BLOOD COUNT 7.5 x10^3/uL (4.0-11.0)
[2018-09-22] MEDS: INSULIN LISPRO 300 UNITS/3 ML INSULN.PEN. SQ SCH ×3 (08:00→17:00)
[2018-09-22] MEDS: metFORMIN 500 MG TABLET PO SCH ×2 (08:31→17:03)
[2018-09-22] MEDS: LACTOBACILLUS RHAMNOSUS GG 1 CAPSULE. PO SCH ×2 (08:31→21:13)
[2018-09-22] MEDS: ISOSORBIDE MONONITRATE ER 30 MG TAB.ER.24H PO SCH (08:31)
[2018-09-22] MEDS: SPIRONOLACTONE 25 MG TABLET PO SCH (08:31)
[2018-09-22] MEDS: FERROUS SULFATE 325 MG TABLET. PO SCH (08:31)
[2018-09-22] MEDS: TORSEMIDE 20 MG TABLET. PO SCH (08:32)
[2018-09-22] MEDS: LISINOPRIL 5 MG TABLET. PO SCH (08:32)
[2018-09-22] MEDS: CYANOCOBALAMIN (VITAMIN B-12) 1,000 MCG TABLET. PO SCH (08:33)
[2018-09-22] MEDS: CARVEDILOL 6.25 MG TABLET PO SCH ×2 (08:33→17:00)
[2018-09-22] MEDS: IPRATRPIUM/ALBUTEROL 0.5/2.5MG 3 ML NEBU. NEB SCH ×2 (09:00→21:00)
--- NOTE | 2018-09-22 11:53 | HP ---
ADMIT DATE: HISTORY OF PRESENT ILLNESS: A 73-year-old male who is being admitted to the skilled unit for generalized weakness and debilitation and deconditioning. The patient recently had a thoracentesis performed and had fluid removed from his left lung approximately half a liter of a red cloudy material and numerous red blood cells and appeared to be some type of an effusion going on there. It has been also analyzed for cytology. The patient otherwise is resting comfortably. He has made fairly good progress, but he still needs expressive physical and occupational therapy. PAST MEDICAL HISTORY: He has had history of stroke; type 2 diabetes, poorly controlled; frequent falls; hypertension; pleural effusion; hypercholesterolemia; coronary bypass surgery. FAMILY HISTORY: Father with cancer, mother with cancer. ALLERGIES: PENICILLIN AND SULFA. MEDICATIONS: Reconciled. See the reconciliation situation. SOCIAL HISTORY: The patient used to be a smoker, quit several years ago. He is a DNR. Denies alcohol or drinking at this time, although he has had bouts of it in the past. The patient is a no code. REVIEW OF SYSTEMS: He denies headaches, visual changes, blurred vision, double vision. Does have generalized tiredness, dyspnea, weakness, difficulty walking and severe pain in his knees. He denies any melena, hematochezia, or hematemesis. Neurologically intact. PHYSICAL EXAMINATION: VITAL SIGNS: Blood pressure 120/70, respiratory rate 20, pulse 94, afebrile. HEENT: The patient's head was atraumatic, normocephalic. Eyes, PERRLA without jaundice. Mouth and throat were normal. NECK: Supple, no JVD, carotid bruits. No thyromegaly. LUNGS: Diminished throughout, but basically clear. CARDIOVASCULAR: Regular sinus rhythm, S1, S2. ABDOMEN: Protuberant, soft, nontender. EXTREMITIES: No clubbing, cyanosis hypertrophy to the knees. No clubbing, cyanosis or edema. NEUROLOGIC: The patient is alert, but very slow staggered speech. The patient has generalized weakness in both the upper and lower extremities. Reflexes are diminished and weakness in both the proximal and distal muscles, consisted with deconditioning. LABORATORY DATA: Show that he is slightly anemic at 9.2 and 27. Previous labs showed he was low in B12, iron, and vitamin D. He is receiving those in supplementation. IMPRESSION: Generalized weakness; pleural effusion; type 2 diabetes, poorly controlled; chronic kidney disease stage 3; marked deconditioning; history of previous stroke and history of coronary artery disease. PLAN: Continue with PT, OT. Await further results of the pleural effusion report. AMARJIT TRIMBLE MD DR: REJI/kevin JOB#: [id number] / [id number]
[2018-09-22] MEDS ORDERED: SENNOSIDES 8.6 MG TABLET PO PRN (12:30)
[2018-09-22 15:32] VITALS: BP 118/62
[2018-09-22 15:34] VITALS: BP 96/57
[2018-09-22] MEDS: ONDANSETRON ODT 4 MG TAB.RAPDIS PO PRN (16:18)
[2018-09-22] MEDS: ACETAMINOPHEN 500 MG TABLET PO PRN (21:13)
[2018-09-22] MEDS: ATORVASTATIN CALCIUM 20 MG TABLET PO SCH (21:14)
[2018-09-23 06:30] VITALS: BP 111/62
[2018-09-23] MEDS: INSULIN LISPRO 300 UNITS/3 ML INSULN.PEN. SQ SCH ×3 (08:00→17:00)
[2018-09-23] MEDS: FERROUS SULFATE 325 MG TABLET. PO SCH (08:17)
[2018-09-23] MEDS: LACTOBACILLUS RHAMNOSUS GG 1 CAPSULE. PO SCH ×2 (08:17→21:39)
[2018-09-23] MEDS: ISOSORBIDE MONONITRATE ER 30 MG TAB.ER.24H PO SCH (08:17)
[2018-09-23] MEDS: metFORMIN 500 MG TABLET PO SCH ×2 (08:18→17:33)
[2018-09-23] MEDS: CYANOCOBALAMIN (VITAMIN B-12) 1,000 MCG TABLET. PO SCH (08:18)
[2018-09-23] MEDS: CARVEDILOL 6.25 MG TABLET PO SCH ×2 (08:18→17:32)
[2018-09-23] MEDS: LISINOPRIL 5 MG TABLET. PO SCH (08:19)
[2018-09-23] MEDS: TORSEMIDE 20 MG TABLET. PO SCH (08:19)
[2018-09-23] MEDS: SPIRONOLACTONE 25 MG TABLET PO SCH (08:19)
[2018-09-23] MEDS: IPRATRPIUM/ALBUTEROL 0.5/2.5MG 3 ML NEBU. NEB SCH ×2 (09:00→21:00)
[2018-09-23 10:40] LABS: FECAL OB PT NEGATIVE (NEG)
[2018-09-23 18:20] VITALS: BP 90/60
[2018-09-23] MEDS: ACETAMINOPHEN 500 MG TABLET PO PRN (21:39)
[2018-09-23] MEDS: ATORVASTATIN CALCIUM 20 MG TABLET PO SCH (21:39)
[2018-09-24 05:42] VITALS: BP 112/60
[2018-09-24 07:58] VITALS: BP 104/53
[2018-09-24] MEDS: INSULIN LISPRO 300 UNITS/3 ML INSULN.PEN. SQ SCH ×3 (08:00→16:41)
[2018-09-24] MEDS: SPIRONOLACTONE 25 MG TABLET PO SCH (08:14)
[2018-09-24] MEDS: FERROUS SULFATE 325 MG TABLET. PO SCH (08:15)
[2018-09-24] MEDS: LACTOBACILLUS RHAMNOSUS GG 1 CAPSULE. PO SCH ×2 (08:15→21:30)
[2018-09-24] MEDS: CARVEDILOL 6.25 MG TABLET PO SCH ×2 (08:15→16:50)
[2018-09-24] MEDS: TORSEMIDE 20 MG TABLET. PO SCH (08:15)
[2018-09-24] MEDS: metFORMIN 500 MG TABLET PO SCH ×2 (08:15→16:49)
[2018-09-24] MEDS: ISOSORBIDE MONONITRATE ER 30 MG TAB.ER.24H PO SCH (08:15)
[2018-09-24] MEDS: LISINOPRIL 5 MG TABLET. PO SCH (08:16)
[2018-09-24] MEDS: CYANOCOBALAMIN (VITAMIN B-12) 1,000 MCG TABLET. PO SCH (08:16)
[2018-09-24] MEDS: IPRATRPIUM/ALBUTEROL 0.5/2.5MG 3 ML NEBU. NEB SCH ×2 (11:30→21:38)
[2018-09-24 18:15] VITALS: BP 95/58
[2018-09-24] MEDS: ATORVASTATIN CALCIUM 20 MG TABLET PO SCH (21:30)
--- NOTE | 2018-09-25 03:40 | PN ---
DATE: 09/24/2018 SUBJECTIVE: A 73-year-old male in with generalized weakness and some mild hypotension. The patient is still receiving physical and occupational therapy on the skilled unit. His Hemoccults were negative. PHYSICAL EXAMINATION: VITAL SIGNS: Blood pressure 105/50, respiratory rate 18, pulse 90, afebrile. GENERAL: The patient is alert and oriented. LUNGS: Diminished, but clear. CARDIOVASCULAR: Irregularly regular. ABDOMEN: Soft, nontender. The patient seems to be gaining a little bit of strength. We will continue to monitor him accordingly. Blood sugars are reasonably under control. His potassium is staying under control as well. IMPRESSION: Therefore, generalized weakness, syncope, hypokalemia, and type 2 diabetes. AMARJIT TRIMBLE MD DR: REJI/kevin JOB#: [id number] / [id number]
[2018-09-25 06:14] VITALS: BP 124/66
[2018-09-25] MEDS: IPRATRPIUM/ALBUTEROL 0.5/2.5MG 3 ML NEBU. NEB SCH ×2 (06:31→21:53)
[2018-09-25] MEDS: ONDANSETRON ODT 4 MG TAB.RAPDIS PO PRN (07:59)
[2018-09-25] MEDS: INSULIN LISPRO 300 UNITS/3 ML INSULN.PEN. SQ SCH ×3 (08:00→17:00)
[2018-09-25] MEDS: CARVEDILOL 6.25 MG TABLET PO SCH ×2 (08:00→17:27)
[2018-09-25 08:33] VITALS: BP 87/59
[2018-09-25] MEDS: LISINOPRIL 5 MG TABLET. PO SCH (09:00)
[2018-09-25] MEDS: ISOSORBIDE MONONITRATE ER 30 MG TAB.ER.24H PO SCH (09:00)
[2018-09-25] MEDS: SPIRONOLACTONE 25 MG TABLET PO SCH (09:00)
[2018-09-25] MEDS: TORSEMIDE 20 MG TABLET. PO SCH (09:00)
[2018-09-25] MEDS: CYANOCOBALAMIN (VITAMIN B-12) 1,000 MCG TABLET. PO SCH (09:28)
[2018-09-25] MEDS: LACTOBACILLUS RHAMNOSUS GG 1 CAPSULE. PO SCH ×2 (09:28→20:18)
[2018-09-25] MEDS: metFORMIN 500 MG TABLET PO SCH ×2 (09:28→17:26)
[2018-09-25] MEDS: FERROUS SULFATE 325 MG TABLET. PO SCH (09:28)
[2018-09-25 17:01] VITALS: BP 115/66
[2018-09-25] MEDS: ATORVASTATIN CALCIUM 20 MG TABLET PO SCH (20:19)
[2018-09-26 05:38] VITALS: BP 128/69
[2018-09-26] MEDS: IPRATRPIUM/ALBUTEROL 0.5/2.5MG 3 ML NEBU. NEB SCH ×2 (06:18→21:18)
[2018-09-26] MEDS: FERROUS SULFATE 325 MG TABLET. PO SCH (08:34)
[2018-09-26] MEDS: CYANOCOBALAMIN (VITAMIN B-12) 1,000 MCG TABLET. PO SCH (08:34)
[2018-09-26] MEDS: SPIRONOLACTONE 25 MG TABLET PO SCH (08:35)
[2018-09-26] MEDS: ISOSORBIDE MONONITRATE ER 30 MG TAB.ER.24H PO SCH (08:35)
[2018-09-26] MEDS: LISINOPRIL 5 MG TABLET. PO SCH (08:35)
[2018-09-26] MEDS: LACTOBACILLUS RHAMNOSUS GG 1 CAPSULE. PO SCH ×2 (08:35→20:18)
[2018-09-26] MEDS: metFORMIN 500 MG TABLET PO SCH ×2 (08:35→17:08)
[2018-09-26] MEDS: TORSEMIDE 20 MG TABLET. PO SCH (08:36)
[2018-09-26] MEDS: CARVEDILOL 6.25 MG TABLET PO SCH ×2 (08:36→17:08)
[2018-09-26] MEDS: INSULIN LISPRO 300 UNITS/3 ML INSULN.PEN. SQ SCH ×3 (08:39→17:00)
[2018-09-26 18:01] VITALS: BP 98/63
[2018-09-26] MEDS: ONDANSETRON ODT 4 MG TAB.RAPDIS PO PRN (20:17)
[2018-09-26] MEDS: ATORVASTATIN CALCIUM 20 MG TABLET PO SCH (20:18)
--- NOTE | 2018-09-27 01:13 | PN ---
DATE: SUBJECTIVE: A 73-year-old gentleman in with generalized weakness as well as pleural effusion that was probably infective. The patient is resting fairly comfortably, making fairly good progress overall, receiving IV antibiotic therapy. Continue to receive PT, OT. He is ambulatory. OBJECTIVE: VITAL SIGNS: The patient's blood pressure 130/70, respiratory rate 18, afebrile. GENERAL: The patient is alert and oriented x 3. Speech fluent, spontaneous and appropriate. Cranial nerves 2-12 grossly intact. LUNGS: Diminished, but clear than they have been. CARDIOVASCULAR: Regular sinus rhythm. ABDOMEN: Soft, nontender. IMPRESSION: 1. Pleural effusion. 2. Pneumonia of unspecified etiology. 3. Generalized weakness. 4. Type 2 diabetes, poorly controlled. 5. Anemia of chronic disease. PLAN: Continue to monitor the patient, also B12 deficiency. Continue to monitor the patient accordingly. PT, OT. AMARJIT TRIMBLE MD DR: REJI/kevin JOB#: [id number] / [id number]
[2018-09-27 05:43] VITALS: BP 105/61
[2018-09-27] MEDS: INSULIN LISPRO 300 UNITS/3 ML INSULN.PEN. SQ SCH ×3 (08:00→16:57)
[2018-09-27] MEDS: CARVEDILOL 6.25 MG TABLET PO SCH ×2 (08:00→16:57)
[2018-09-27] MEDS: ISOSORBIDE MONONITRATE ER 30 MG TAB.ER.24H PO SCH (08:27)
[2018-09-27] MEDS: metFORMIN 500 MG TABLET PO SCH ×2 (08:27→16:53)
[2018-09-27] MEDS: FERROUS SULFATE 325 MG TABLET. PO SCH (08:28)
[2018-09-27] MEDS: SPIRONOLACTONE 25 MG TABLET PO SCH (08:28)
[2018-09-27] MEDS: CYANOCOBALAMIN (VITAMIN B-12) 1,000 MCG TABLET. PO SCH (08:28)
[2018-09-27] MEDS: LACTOBACILLUS RHAMNOSUS GG 1 CAPSULE. PO SCH ×2 (08:28→21:25)
[2018-09-27] MEDS: TORSEMIDE 20 MG TABLET. PO SCH (08:28)
[2018-09-27] MEDS: LISINOPRIL 5 MG TABLET. PO SCH (08:29)
[2018-09-27] MEDS: IPRATRPIUM/ALBUTEROL 0.5/2.5MG 3 ML NEBU. NEB SCH ×2 (10:45→19:25)
[2018-09-27] MEDS: METOCLOPRAMIDE 5 MG TABLET PO SCH ×2 (16:52→21:25)
[2018-09-27 16:57] VITALS: BP 95/57
[2018-09-27] MEDS: ATORVASTATIN CALCIUM 20 MG TABLET PO SCH (21:26)
[2018-09-28 06:19] VITALS: BP 129/74
[2018-09-28] MEDS: METOCLOPRAMIDE 5 MG TABLET PO SCH ×4 (07:19→21:08)
[2018-09-28] MEDS: INSULIN LISPRO 300 UNITS/3 ML INSULN.PEN. SQ SCH ×3 (08:00→17:24)
[2018-09-28] MEDS: metFORMIN 500 MG TABLET PO SCH ×2 (08:00→17:21)
[2018-09-28] MEDS: CYANOCOBALAMIN (VITAMIN B-12) 1,000 MCG TABLET. PO SCH (08:00)
[2018-09-28] MEDS: CARVEDILOL 6.25 MG TABLET PO SCH ×2 (08:01→17:22)
[2018-09-28] MEDS: ISOSORBIDE MONONITRATE ER 30 MG TAB.ER.24H PO SCH (08:01)
[2018-09-28] MEDS: LISINOPRIL 5 MG TABLET. PO SCH (08:01)
[2018-09-28] MEDS: TORSEMIDE 20 MG TABLET. PO SCH (08:02)
[2018-09-28] MEDS: LACTOBACILLUS RHAMNOSUS GG 1 CAPSULE. PO SCH ×2 (08:02→21:08)
[2018-09-28] MEDS: SPIRONOLACTONE 25 MG TABLET PO SCH (08:02)
[2018-09-28] MEDS: FERROUS SULFATE 325 MG TABLET. PO SCH (08:02)
[2018-09-28] MEDS ORDERED: CHOLECALCIFEROL (VITAMIN D3) 50,000 UNIT CAPSULE PO SCH (09:00)
[2018-09-28] MEDS: IPRATRPIUM/ALBUTEROL 0.5/2.5MG 3 ML NEBU. NEB SCH ×2 (09:58→19:58)
[2018-09-28 17:24] VITALS: BP 122/67
[2018-09-28] MEDS: ATORVASTATIN CALCIUM 20 MG TABLET PO SCH (21:09)
[2018-09-28] MEDS: metroNIDAZOLE 500 MG TABLET PO SCH (22:33)
[2018-09-29 05:35] VITALS: BP 109/62
[2018-09-29] MEDS: metroNIDAZOLE 500 MG TABLET PO SCH ×3 (06:20→22:08)
[2018-09-29] MEDS: INSULIN LISPRO 300 UNITS/3 ML INSULN.PEN. SQ SCH ×3 (08:00→17:00)
[2018-09-29] MEDS: metFORMIN 500 MG TABLET PO SCH ×2 (09:34→17:04)
[2018-09-29] MEDS: LACTOBACILLUS RHAMNOSUS GG 1 CAPSULE. PO SCH ×2 (09:34→22:08)
[2018-09-29] MEDS: CYANOCOBALAMIN (VITAMIN B-12) 1,000 MCG TABLET. PO SCH (09:34)
[2018-09-29] MEDS: METOCLOPRAMIDE 5 MG TABLET PO SCH ×4 (09:34→22:09)
[2018-09-29] MEDS: ISOSORBIDE MONONITRATE ER 30 MG TAB.ER.24H PO SCH (09:34)
[2018-09-29] MEDS: TORSEMIDE 20 MG TABLET. PO SCH (09:35)
[2018-09-29] MEDS: FERROUS SULFATE 325 MG TABLET. PO SCH (09:35)
[2018-09-29] MEDS: SPIRONOLACTONE 25 MG TABLET PO SCH (09:35)
[2018-09-29] MEDS: CARVEDILOL 6.25 MG TABLET PO SCH ×2 (10:03→17:00)
[2018-09-29] MEDS: LISINOPRIL 5 MG TABLET. PO SCH (10:04)
[2018-09-29] MEDS: IPRATRPIUM/ALBUTEROL 0.5/2.5MG 3 ML NEBU. NEB SCH ×2 (11:16→20:10)
[2018-09-29 17:10] VITALS: BP 106/62
[2018-09-29] MEDS: ATORVASTATIN CALCIUM 20 MG TABLET PO SCH (22:08)
[2018-09-29] MEDS: ACETAMINOPHEN 500 MG TABLET PO PRN (22:15)
[2018-09-30 05:42] VITALS: BP 104/61
[2018-09-30] MEDS: metroNIDAZOLE 500 MG TABLET PO SCH ×3 (06:23→21:38)
[2018-09-30] MEDS: INSULIN LISPRO 300 UNITS/3 ML INSULN.PEN. SQ SCH ×3 (08:00→17:00)
[2018-09-30] MEDS: LACTOBACILLUS RHAMNOSUS GG 1 CAPSULE. PO SCH ×2 (08:28→21:38)
[2018-09-30] MEDS: METOCLOPRAMIDE 5 MG TABLET PO SCH ×4 (08:28→21:38)
[2018-09-30] MEDS: CARVEDILOL 6.25 MG TABLET PO SCH ×2 (08:28→17:00)
[2018-09-30] MEDS: FERROUS SULFATE 325 MG TABLET. PO SCH (08:29)
[2018-09-30] MEDS: CYANOCOBALAMIN (VITAMIN B-12) 1,000 MCG TABLET. PO SCH (08:29)
[2018-09-30] MEDS: metFORMIN 500 MG TABLET PO SCH ×2 (08:29→17:36)
[2018-09-30] MEDS: LISINOPRIL 5 MG TABLET. PO SCH (08:29)
[2018-09-30] MEDS: TORSEMIDE 20 MG TABLET. PO SCH (08:29)
[2018-09-30] MEDS: ISOSORBIDE MONONITRATE ER 30 MG TAB.ER.24H PO SCH (08:30)
[2018-09-30] MEDS: SPIRONOLACTONE 25 MG TABLET PO SCH (08:30)
[2018-09-30] MEDS: IPRATRPIUM/ALBUTEROL 0.5/2.5MG 3 ML NEBU. NEB SCH ×2 (11:41→20:24)
[2018-09-30 17:45] VITALS: BP 101/62
[2018-09-30] MEDS: ATORVASTATIN CALCIUM 20 MG TABLET PO SCH (21:38)
[2018-09-30] MEDS: ACETAMINOPHEN 500 MG TABLET PO PRN (21:39)
[2018-10-01 05:21] VITALS: BP 105/67
[2018-10-01] MEDS: metroNIDAZOLE 500 MG TABLET PO SCH ×2 (05:22→14:06)
[2018-10-01 06:01] LABS: BASO # 0.1 x10^3/uL (0.0-0.2); BASO % 1 % (0-3); EOS # 0.3 x10^3/uL (0.0-0.7); EOS % 4 % (0-3); HEMATOCRIT 25.9 % (39.0-53.0); HEMOGLOBIN 8.6 g/dL (13.0-17.5); LYMPH # 1.2 x10^3/uL (1.0-4.8); LYMPH % 18 % (24-48); MEAN CORPUSCULAR HEMOGLOBIN 31 pg (25-35); MEAN CORPUSCULAR HGB CONC 33 g/dL (31-37); MEAN CORPUSCULAR VOLUME 94 fL (79-100); MONO # 0.7 x10^3/uL (0.0-1.1); MONO % 10 % (0-9); NEUT # 4.8 x10^3uL (1.8-7.7); NEUT % 68 % (31-73); PLATELET COUNT 159 x10^3/uL (140-400); RED BLOOD COUNT 2.74 x10^6/uL (4.30-5.70)
[2018-10-01 06:10] LABS: CALCIUM 9.1 mg/dL (8.5-10.1); CREATININE 2.1 mg/dL (0.7-1.3); GFR 30.9; POTASSIUM 4.8 mmol/L (3.5-5.1)
[2018-10-01] MEDS: METOCLOPRAMIDE 5 MG TABLET PO SCH ×2 (07:30→11:55)
[2018-10-01] MEDS: metFORMIN 500 MG TABLET PO SCH (08:11)
[2018-10-01] MEDS: ISOSORBIDE MONONITRATE ER 30 MG TAB.ER.24H PO SCH (08:11)
[2018-10-01] MEDS: FERROUS SULFATE 325 MG TABLET. PO SCH (08:11)
[2018-10-01] MEDS: TORSEMIDE 20 MG TABLET. PO SCH (08:11)
[2018-10-01] MEDS: SPIRONOLACTONE 25 MG TABLET PO SCH (08:11)
[2018-10-01] MEDS: LACTOBACILLUS RHAMNOSUS GG 1 CAPSULE. PO SCH (08:12)
[2018-10-01] MEDS: CYANOCOBALAMIN (VITAMIN B-12) 1,000 MCG TABLET. PO SCH (08:12)
[2018-10-01] MEDS: LISINOPRIL 5 MG TABLET. PO SCH (08:14)
[2018-10-01] MEDS: INSULIN LISPRO 300 UNITS/3 ML INSULN.PEN. SQ SCH ×2 (08:15→11:55)
[2018-10-01 08:16] VITALS: BP 105/67
[2018-10-01] MEDS: CARVEDILOL 6.25 MG TABLET PO SCH (08:16)
[2018-10-01] MEDS: IPRATRPIUM/ALBUTEROL 0.5/2.5MG 3 ML NEBU. NEB SCH (09:41)
[2018-10-01] MEDS ORDERED: CARV3.12 PO (14:15)
[2018-10-01] MEDS ORDERED: METF500T PO (14:15)
[2018-10-01] MEDS ORDERED: TORS20TA PO (14:15)
[2018-10-01] MEDS ORDERED: ONDA4TAB12 PO (14:15)
[2018-10-01] MEDS ORDERED: METR500T PO (14:15)
[2018-10-01] MEDS ORDERED: METO5TAB PO (14:15)
[2018-10-01] MEDS ORDERED: LACT1CAP12 PO (14:15)
[2018-10-01] MEDS ORDERED: metFORMIN 500 MG TABLET PO SCH (17:00)
[2018-10-01] MEDS ORDERED: CARVEDILOL 6.25 MG TABLET PO SCH (17:00)
[2018-10-03] MEDS ORDERED: TORSEMIDE 20 MG TABLET. PO SCH (09:00)
--- NOTE | 2018-10-08 15:11 | DS ---
DATE OF DISCHARGE: 10/01/2018 HOSPITAL COURSE: The patient is a 73-year-old gentleman who was on the SNF unit for evaluation for strengthening. He had generalized weakness and deconditioning. He had half a liter of fluid removed from his left lung and pleural effusion there. The patient while on the swing bed, he was noted to have C. difficile. His BUN and creatinine were also elevated. His chemistry showed he had a low hemoglobin 8.6 and hematocrit of 25. The patient made fairly good progress overall and the patient first recovered from his thoracentesis. Received physical and occupational therapy, made good results there. He was low on his B12 of 238. Vitamin D was low at 10.7. The patient's BUN and creatinine were 62 and 2.1. Otherwise, glucose was elevated. He is a known diabetic and his A1c was 7.1. Lactic acid was normal. Iron also was low as well. In any case, the patient made good progress during the rest of his hospitalization. He was discharged home. DISCHARGE DIAGNOSES: Included that of C. difficile colitis, generalized weakness, chronic kidney disease stage 4, type 2 diabetes fairly poorly controlled, iron deficiency anemia, B12 deficiency, and vitamin D deficiency. The patient will be sent home on extra vitamin B12, vitamin D and iron and followup accordingly in the office. He was also placed on Flagyl for his C. difficile colitis. The patient made good progress. He was discharged home and will make further evaluation on him as an outpatient. AMARJIT TRIMBLE MD DR: REJI/kevin JOB#: [id number] / [id number]
== END 2018-10-01 15:15 | disposition home health service (06) | DRG 371 ==
LOC: LND 09:00 → UNDOADMIN 09:00 → 1 SOUTH 09-21 19:17 → LND 09-23 14:54
PROVIDERS: ADMIT Family Medicine; ATTEND Family Medicine
DX: A04.72 Enterocolitis due to Clostridium difficile, not specified as recurrent (principal); J18.9 Pneumonia, unspecified organism; J90 Pleural effusion, not elsewhere classified; E78.00 Pure hypercholesterolemia, unspecified; Z66 Do not resuscitate; N18.3 Chronic kidney disease, stage 3 (moderate); E11.22 Type 2 diabetes mellitus with diabetic chronic kidney disease; E11.65 Type 2 diabetes mellitus with hyperglycemia; I12.9 Hypertensive chronic kidney disease with stage 1 through stage 4 chronic kidney disease, or unspecified chronic kidney disease; D50.9 Iron deficiency anemia, unspecified; I95.9 Hypotension, unspecified; E55.9 Vitamin D deficiency, unspecified; E87.6 Hypokalemia; E53.8 Deficiency of other specified B group vitamins; I25.10 Atherosclerotic heart disease of native coronary artery without angina pectoris; Z95.1 Presence of aortocoronary bypass graft; Z80.9 Family history of malignant neoplasm, unspecified; Z88.0 Allergy status to penicillin; Z87.891 Personal history of nicotine dependence; Z86.73 Personal history of transient ischemic attack (TIA), and cerebral infarction without residual deficits
CPT/HCPCS: 36415; 80048; 82274; 82947; 85025; 87493; 94640; J0696; J1815; J7620; J8597; Q0162; 97110; 97112; 97116; 97530; 97535

== ENCOUNTER 2019-01-02 08:42 | Inpatient (IN) | payer MEDICARE, BC ==
[~2019-01-02] VITALS: Ht 170.2 cm; Wt 75.0 kg
[~2019-01-02 08:42] MED LIST changes: +ACET500T68 PO; +CARV3.12 PO; +CEFT1FRO2 IV; +CHOL500016 PO; +CYAN100031 PO; +DICL100G18 TP; +FERR325T14 PO; +IPRA3AMP29 NEB; +ISOS30TA4 PO; +LACT1CAP12 PO; +METF500T PO; +METO5TAB PO; +METR500T PO; +ONDA4TAB12 PO; +TORS20TA PO
[2019-01-02 09:31] LABS: BASO # 0.1 x10^3/uL (0.0-0.2); BASO % 0 % (0-3); EOS % 0 % (0-3); HEMATOCRIT 34.7 % (39.0-53.0); HEMOGLOBIN 11.2 g/dL (13.0-17.5); LYMPH # 0.7 x10^3/uL (1.0-4.8); LYMPH % 4 % (24-48); MEAN CORPUSCULAR HEMOGLOBIN 29 pg (25-35); MEAN CORPUSCULAR HGB CONC 32 g/dL (31-37); MEAN CORPUSCULAR VOLUME 91 fL (79-100); MONO # 1.2 x10^3/uL (0.0-1.1); MONO % 6 % (0-9); NEUT # 17.3 x10^3uL (1.8-7.7); NEUT % 90 % (31-73); PLATELET COUNT 217 x10^3/uL (140-400); RED CELL DISTRIBUTION WIDTH 13.2 % (11.5-14.5); WHITE BLOOD COUNT 19.3 x10^3/uL (4.0-11.0)
[2019-01-02 09:39] LABS: ALBUMIN 2.4 g/dL (3.4-5.0); ALBUMIN/GLOBULIN RATIO 0.6 (1.0-1.7); CALCIUM 8.8 mg/dL (8.5-10.1); CREATININE 1.1 mg/dL (0.7-1.3); GFR 65.3; POTASSIUM 3.5 mmol/L (3.5-5.1); TOTAL BILIRUBIN 0.5 mg/dL (0.2-1.0); TOTAL PROTEIN 6.5 g/dL (6.4-8.2)
[2019-01-02 10:10] LABS: % BANDS 8 % (0-9); % EOS 2 % (0-5); % LYMPHS 3 % (24-48); % MONOS 3 % (0-10); % SEGS 84 % (35-66)
[2019-01-02 10:11] LABS: OVALOCYTES PRESENT; PLT ESTIMATE ADEQUATE (ADEQUATE)
[2019-01-02 10:12] LABS: TOXIC GRANULATION PRESENT
[2019-01-02 10:14] LABS: INFLUENZA A PATIENT NEGATIVE (NEGATIVE); INFLUENZA B PATIENT NEGATIVE (NEGATIVE)
[2019-01-02] MEDS ORDERED: IV NORMAL SALINE 1,000ML 1,000 ML IV ONE (10:45)
--- NOTE | 2019-01-02 11:02 | RAD ---
CHEST AP ONLY Clinical indications: Cough. COMPARISON: September 21, 2018. Findings: Again seen is a chronic left-sided pleural effusion/pleural thickening and associated compressive atelectasis or consolidative left lung base infiltrate which is stable. Heart is displaced towards the left side and therefore, there may be an element of volume loss of the left lower lung zone. This is unchanged as well. The right lung field remains clear. No pneumothorax is seen. IMPRESSION: Chronic abnormality of the left lower lung zone with chronic pleural effusion or pleural thickening. Electronically signed by: Winston Richards MD (01/02/2019 10:59 AM) [place] [id number]
[2019-01-02 11:48] LABS: AMORPHOUS SEDIMENT,UR PRESENT /HPF; BACTERIA,URINE FEW /HPF (0-FEW); BILIRUBIN,URINE NEG (NEG); CLARITY,URINE HAZY; COLOR,URINE AMBER; GLUCOSE,URINE NEG (NEG); HYALINE CASTS, URINE OCC /HPF; NITRITE,URINE NEG (NEG); SQUAMOUS EPITHELIAL CELL,UR FEW /LPF; UROBILINOGEN,URINE 0.2 mg/dL (0.2 mg/dL)
[2019-01-02 11:49] LABS: GRANULAR CASTS,URINE MOD /HPF
--- NOTE | 2019-01-02 12:03 | PHYS DOC ---
Past History Past Medical History: Diabetes, High Cholesterol, Hypertension, VT, Pneumonia, Renal Disease, Stroke, Other Additional Past Medical Histor: Pleural effusion, hypokalemia, syncope, PE. Past Surgical History: Coronary Bypass Surgery, Other Alcohol Use: None Drug Use: None Adult General Chief Complaint Chief Complaint: WEAKNESS/GENERALIZED HPI HPI Patient is a 73-year-old male with multiple medical problems who presents douglas parr to a fall at home. states he began getting weak yesterday evening she had a hard time getting him up out of the chair and into the bedroom. During the middle of the night he needed to use the restroom and the struggled to get him up out of bed he was able to ambulate to the restroom and get back in bed on his own however this morning the same thing occurred she was able to get him up he use the restroom and then on the way back fell and was unable to get up. EMS brought him in here. He did not hit his head. He denies any headache or neck pain. He denies any lateralizing neurologic weakness or clumsiness. He just states that it feels like his body gave out. He denies any fever chills or sweats. He denies any dysuria or gross hematuria. He has had a bit of a cough but this is no worse than what he ordinarily has. He denies any hemoptysis. He denies any unwanted weight loss recently.[] Review of Systems Review of Systems Constitutional: Denies fever or chills [] Eyes: Denies change in visual acuity, redness, or eye pain [] HENT: Denies nasal congestion or sore throat [] Respiratory: Denies cough or shortness of breath [] Cardiovascular: No additional information not addressed in HPI [] GI: Denies abdominal pain, nausea, vomiting, bloody stools or diarrhea [] : Denies dysuria or hematuria [] Musculoskeletal: Denies back pain or joint pain [] Integument: Denies rash or skin lesions [] Neurologic: As described in the history of present illness[] Endocrine: Denies polyuria or polydipsia [] All other systems were reviewed and found to be within normal limits, except as documented in this note. Current Medications Current Medications Current Medications Medications (Trade) Dose Ordered Sig/Nikolay Start Time Stop Time Status Last Admin Dose Admin Sodium Chloride 1,000 ml @ 1,000 mls/hr 1X ONCE 01/02/19 10:45 01/02/19 11:44 DC 01/02/19 10:20 1,000 MLS/HR Allergies Allergies Allergies Coded Allergies Type Severity Reaction Last Updated Verified Penicillins Allergy Intermediate 09/16/18 Yes Sulfa (Sulfonamide Antibiotics) Allergy Intermediate 09/16/18 Yes Physical Exam Physical Exam Constitutional: Well developed, well nourished, no acute distress, non-toxic appearance. [] HENT: Normocephalic, atraumatic, bilateral external ears normal, oropharynx moist, no oral exudates, nose normal. [] Eyes: PERRLA, EOMI, conjunctiva normal, no discharge. [] Neck: Normal range of motion, no tenderness, supple, no stridor. [] Cardiovascular:Heart rate regular rhythm, no murmur [] Lungs & Thorax: Bilateral breath sounds clear to auscultation [] Abdomen: Bowel sounds normal, soft, no tenderness, no masses, no pulsatile masses. [] Skin: Warm, dry, no erythema, no rash. [] Back: No tenderness, no CVA tenderness. [] Extremities: No tenderness, no cyanosis, no clubbing, ROM intact, no edema. [] Neurologic: Alert and oriented X 3, normal motor function, normal sensory function, no focal deficits noted. [] Psychologic: Affect normal, judgement normal, mood normal. [] Current Patient Data Vital Signs Vital Signs Date Time Temp Pulse Resp B/P (MAP) Pulse Ox O2 Delivery O2 Flow Rate FiO2 01/02/19 08:42 97.7 92 23 97 Room Air Lab Results Laboratory Tests Test 01/02/19 08:52 01/02/19 08:55 01/02/19 10:57 01/02/19 11:11 White Blood Count 19.3 x10^3/uL (4.0-11.0) H Red Blood Count 3.80 x10^6/uL (4.30-5.70) L Hemoglobin 11.2 g/dL (13.0-17.5) L Hematocrit 34.7 % (39.0-53.0) L Mean Corpuscular Volume 91 fL (79-100) Mean Corpuscular Hemoglobin 29 pg (25-35) Mean Corpuscular Hemoglobin Concent 32 g/dL (31-37) Red Cell Distribution Width 13.2 % (11.5-14.5) Platelet Count 217 x10^3/uL (140-400) Neutrophils (%) (Auto) 90 % (31-73) H Lymphocytes (%) (Auto) 4 % (24-48) L Monocytes (%) (Auto) 6 % (0-9) Eosinophils (%) (Auto) 0 % (0-3) Basophils (%) (Auto) 0 % (0-3) Neutrophils # (Auto) 17.3 x10^3uL (1.8-7.7) H Lymphocytes # (Auto) 0.7 x10^3/uL (1.0-4.8) L Monocytes # (Auto) 1.2 x10^3/uL (0.0-1.1) H Eosinophils # (Auto) 0.0 x10^3/uL (0.0-0.7) Basophils # (Auto) 0.1 x10^3/uL (0.0-0.2) Segmented Neutrophils % 84 % (35-66) H Band Neutrophils % 8 % (0-9) Lymphocytes % 3 % (24-48) L Monocytes % 3 % (0-10) Eosinophils % 2 % (0-5) Toxic Granulation Present Platelet Estimate Adequate (ADEQUATE) Giant Platelets Present Ovalocytes Present Sodium Level 141 mmol/L (136-145) Potassium Level 3.5 mmol/L (3.5-5.1) Chloride Level 103 mmol/L (98-107) Carbon Dioxide Level 31 mmol/L (21-32) Anion Gap 7 (6-14) Blood Urea Nitrogen 20 mg/dL (8-26) Creatinine 1.1 mg/dL (0.7-1.3) Estimated GFR (Cockcroft-Gault) 65.3 BUN/Creatinine Ratio 18 (6-20) Glucose Level 131 mg/dL (70-99) H Calcium Level 8.8 mg/dL (8.5-10.1) Total Bilirubin 0.5 mg/dL (0.2-1.0) Aspartate Amino Transferase (AST) 13 U/L (15-37) L Alanine Aminotransferase (ALT) 14 U/L (16-63) L Alkaline Phosphatase 77 U/L (46-116) Total Protein 6.5 g/dL (6.4-8.2) Albumin 2.4 g/dL (3.4-5.0) L Albumin/Globulin Ratio 0.6 (1.0-1.7) L Influenza Type A (Rapid) Negative (NEGATIVE) Influenza Type B (Rapid) Negative (NEGATIVE) Lactic Acid Level 0.8 mmol/L (0.4-2.0) Urine Collection Type Unknown Urine Color Nicole Urine Clarity Hazy Urine pH 5.0 Urine Specific [place] 1.025 Urine Protein 100 mg/dl (NEG-TRACE) Urine Glucose (UA) Neg mg/dL (NEG) Urine Ketones (Stick) 15 mg/dL (NEG) Urine Blood Neg (NEG) Urine Nitrite Neg (NEG) Urine Bilirubin Neg (NEG) Urine Urobilinogen Dipstick 0.2 mg/dL (0.2 mg/dL) Urine Leukocyte Esterase Neg (NEG) Urine RBC 1-2 /HPF (0-2) Urine WBC 1-4 /HPF (0-4) Urine Squamous Epithelial Cells Few /LPF Urine Amorphous Sediment Present /HPF Urine Bacteria Few /HPF (0-FEW) Urine Hyaline Casts Occ /HPF Urine Granular Casts Mod /HPF Urine Mucus Slight /LPF EKG EKG [] Radiology/Procedures Radiology/Procedures [] Impressions: REASON: cough PROCEDURE: CHEST AP ONLY CHEST AP ONLY Clinical indications: Cough. COMPARISON: September 21, 2018. Findings: Again seen is a chronic left-sided pleural effusion/pleural thickening and associated compressive atelectasis or consolidative left lung base infiltrate which is stable. Heart is displaced towards the left side and therefore, there may be an element of volume loss of the left lower lung zone. This is unchanged as well. The right lung field remains clear. No pneumothorax is seen. IMPRESSION: Chronic abnormality of the left lower lung zone with chronic pleural effusion or pleural thickening. Course & Med Decision Making Course & Med Decision Making Pertinent Labs and Imaging studies reviewed. (See chart for details) [ED course: Evaluation reveals a generally weak 73-year-old male who appears acute on chronically ill. He does have a 19,000 white count but I do not see any source of infection that would be causing this. He's been afebrile vital signs have been within normal limits. Initially we had a hard time getting urine so he was given 1 L of IV fluids. Clinically on arrival he looked dehydrated however his laboratory studies did not show signs of dehydration. Given his generalized weakness and ataxia the patient will need to be admitted and considered for residential placement] Dragon Disclaimer Dragon Disclaimer This electronic medical record was generated, in whole or in part, using a voice recognition dictation system. Departure Departure: Impression: Primary Impression: Generalized weakness Additional Impression: Ataxia Disposition: ADMITTED INPATIENT Admitting Physician: Lisette Sparks Condition: STABLE Referrals: AMARJIT TRIMBLE MD (PCP) Problem Qualifiers PEDRO BURDICK DO Jan 02, 2019 12:03
[2019-01-02 13:09] VITALS: BP 145/74
[2019-01-02] MEDS ORDERED: ACETAMINOPHEN 325 MG TABLET PO PRN (13:15)
[2019-01-02] MEDS ORDERED: ONDANSETRON ODT 4 MG TAB.RAPDIS PO PRN (13:15)
[2019-01-02] MEDS ORDERED: DICLOFENAC SODIUM 1% TOPICAL GEL 100GM TUBE. TP PRN (13:15)
[2019-01-02] MEDS ORDERED: IOHEXOL 240 MG/ML 50ML VIAL. ONE (13:31)
[2019-01-02] MEDS ORDERED: CONTRAST GIVEN MC PRN (13:45)
[2019-01-02] MEDS ORDERED: IOHEXOL 240 MG/ML 50ML VIAL. PO ONE (13:45)
[2019-01-02] MEDS ORDERED: IOHEXOL 300 MG/ML 75 ML VIAL. IV ONE (13:45)
[2019-01-02] MEDS ORDERED: metroNIDAZOLE 500 MG TABLET PO SCH (14:00)
[2019-01-02] MEDS: IV NORMAL SALINE 1,000ML 1,000 ML IV SCH ×2 (14:22→23:22)
[2019-01-02] MEDS: VANCOMYCIN 125 MG/2.5 ML ORAL SOLUTION. PO SCH ×2 (15:26→21:26)
--- NOTE | 2019-01-02 15:39 | RAD ---
Examination: CT ABD PELV W/ORAL IV CONTRAST History: Abdominal pain and diarrhea Comparison/Correlation: 06/14/2018 CT abdomen and pelvis with contrast Findings: Axial images of the abdomen and pelvis were obtained following IV and oral contrast. Sagittal and coronal reformatted images were provided. Small to moderate-sized left pleural effusion is present. Left lower lobe atelectatic consolidation is present. Right lung base unremarkable. Liver, spleen, pancreas, and adrenal glands are normal. Kidneys are unremarkable. Significant calcific involvement of the abdominal aorta and iliac arteries is noted. Moderate quantity of stool is present in the colon. Circumferential wall thickening of the splenic flexure to the proximal sigmoid colon is present. Surrounding edema is noted. Diverticulosis is present. No abscess collection identified. Urinary bladder is unremarkable. Prostatomegaly is present. No acute bony process. Impression: Circumferential wall thickening of the colon from hepatic flexure to the proximal sigmoid region with surrounding edema compatible with colitis. No abscess. Diverticulosis is also seen. Prostatomegaly. Left basilar moderate size pleural effusion and atelectatic consolidation are partially visualized. PQRS Compliance Statement: One or more of the following individualized dose reduction techniques were utilized for this examination: 1. Automated exposure control 2. Adjustment of the mA and/or kV according to patient size 3. Use of iterative reconstruction technique Electronically signed by: Demetri Henderson MD (01/02/2019 3:36 PM) [facility]
[2019-01-02 15:40] VITALS: BP 129/75
[2019-01-02] MEDS: METOCLOPRAMIDE 5 MG TABLET PO SCH ×2 (16:38→21:26)
[2019-01-02 20:00] VITALS: BP 127/68
[2019-01-02] MEDS: IPRATRPIUM/ALBUTEROL 0.5/2.5MG 3 ML NEBU. NEB SCH (20:37)
[2019-01-02] MEDS: AMMONIUM LACTATE 12% TOPICAL LOTION 226GM BOTTLE. TP SCH (21:26)
[2019-01-03 00:53] VITALS: BP 106/61
[2019-01-03] MEDS: IV NORMAL SALINE 1,000ML 1,000 ML IV SCH ×2 (06:17→16:51)
[2019-01-03 06:19] VITALS: BP 121/74
[2019-01-03 06:32] LABS: BASO % 0 % (0-3); EOS # 0.1 x10^3/uL (0.0-0.7); EOS % 0 % (0-3); HEMATOCRIT 32.4 % (39.0-53.0); HEMOGLOBIN 10.4 g/dL (13.0-17.5); LYMPH # 0.8 x10^3/uL (1.0-4.8); LYMPH % 4 % (24-48); MEAN CORPUSCULAR HEMOGLOBIN 29 pg (25-35); MEAN CORPUSCULAR HGB CONC 32 g/dL (31-37); MEAN CORPUSCULAR VOLUME 91 fL (79-100); MONO # 1.3 x10^3/uL (0.0-1.1); MONO % 7 % (0-9); NEUT # 16.7 x10^3uL (1.8-7.7); NEUT % 88 % (31-73); PLATELET COUNT 214 x10^3/uL (140-400); RED BLOOD COUNT 3.56 x10^6/uL (4.30-5.70); RED CELL DISTRIBUTION WIDTH 13.4 % (11.5-14.5); WHITE BLOOD COUNT 18.9 x10^3/uL (4.0-11.0)
[2019-01-03 06:40] LABS: CALCIUM 7.9 mg/dL (8.5-10.1); CREATININE 0.9 mg/dL (0.7-1.3); GFR 82.3; POTASSIUM 3.2 mmol/L (3.5-5.1)
[2019-01-03] MEDS ORDERED: POTASSIUM CHLORIDE 20 MEQ TABLET.ER. PO ONE (08:00)
[2019-01-03 08:03] LABS: % BANDS 2 % (0-9); % LYMPHS 5 % (24-48); % MONOS 6 % (0-10); % SEGS 87 % (35-66)
[2019-01-03 08:08] LABS: OVALOCYTES FEW; PLT ESTIMATE ADEQUATE (ADEQUATE); POIKILOCYTOSIS SLIGHT
[2019-01-03 08:09] LABS: TOXIC GRANULATION PRESENT
[2019-01-03 08:10] LABS: TOXIC VACUOLATION PRESENT
[2019-01-03] MEDS: METOCLOPRAMIDE 5 MG TABLET PO SCH ×4 (08:17→20:04)
[2019-01-03] MEDS: VANCOMYCIN 125 MG/2.5 ML ORAL SOLUTION. PO SCH ×4 (08:18→20:04)
[2019-01-03] MEDS: AMMONIUM LACTATE 12% TOPICAL LOTION 226GM BOTTLE. TP SCH ×2 (08:19→20:04)
--- NOTE | 2019-01-03 10:18 | RAD ---
CT HEAD WO CONTRAST Clinical indications: Change in mental status. Hit head with fall. COMPARISON: February 03, 2013. Technique: Noncontrast axial cross sectional scanning of the head was performed. PQRS compliance Statement One or more of the following individualized dose reduction techniques were utilized for this study: 1. Automated exposure control 2. Adjustment of the mA and/or kV according to patient size 3. Use of iterative reconstruction technique Findings: No acute intracranial hemorrhage or midline shift or mass-effect or hydrocephalus or extra-axial fluid collection is seen. A small old infarct of the right centrum semiovale and marin radiata is again seen. No new focal hypodense area or sulci effacement is seen to indicate an acute infarct or edema radiographically. No skull fracture or pneumocephalus is seen. No opacification of the mastoid sinuses or the middle ear cavities or the paranasal sinuses is seen. The maxillary sinuses are not completely seen in this study. Impression: No acute intracranial abnormality is seen. Electronically signed by: Winston Richards MD (01/03/2019 10:16 AM) [id number]
[2019-01-03 11:17] LABS: CALCIUM 7.7 mg/dL (8.5-10.1); GFR 72.8; POTASSIUM 3.3 mmol/L (3.5-5.1)
[2019-01-03 11:36] VITALS: BP 126/79
[2019-01-03] MEDS: IPRATRPIUM/ALBUTEROL 0.5/2.5MG 3 ML NEBU. NEB SCH ×2 (11:56→21:36)
--- NOTE | 2019-01-03 13:14 | HP ---
ADMIT DATE: 01/02/2019 HISTORY OF PRESENT ILLNESS: A 73-year-old male. The patient has been falling at home and been having problems with generalized weakness and diarrhea. The patient hit his head when he fell at home and has been staggering around when he came in through the Emergency Room. The patient was quickly reviewed and noted to have generalized weakness, orthostasis and hypotension at times. The patient denied any other problems, but he looks terrible in terms of generalized weakness and change in mental status, was evident may be related to the severe diarrhea that is being treated for. He was seen down in the Emergency Room and treated for C. diff. His white count was over 19,000. He was admitted for further evaluation of his colitis, change in mental status as indicated, falling, diarrhea. He also has diabetes. PAST MEDICAL HISTORY: As noted above, cerebrovascular accident, coronary artery bypass graft, hypercholesterolemia, pulmonary emboli, nausea, vomiting, smoking for the last 50 years, frequent falls, smoking exposure 50 years, influenza up-to-date. FAMILY HISTORY: Cancer in the father and mother, diabetes in the family as well. ALLERGIES: PENICILLIN AND SULPHUR. HOME MEDICATIONS: Include Flagyl 500 t.i.d., DuoNeb, Stiolto respiratory therapy, Lipitor 80, ferrous sulfate, isosorbide, carvedilol 3.125, diclofenac, Voltaren, Tylenol, torsemide 20 mg daily, Zofran ODT, lactobacilli, metoclopramide, metformin 500 b.i.d., vitamin B complex, vitamin D3. SOCIAL HISTORY: The patient is a DNR, a heavy history of smoking and alcohol use, but none of late. The patient is and lives at home, DNR. REVIEW OF SYSTEMS: Generalized weakness, paleness, shortness of breath, chest discomfort. Negative abdominal pain. Diffuse abdominal discomfort with some nausea, no vomiting. Loose stools. No hematochezia or melena PHYSICAL EXAMINATION: GENERAL: The patient on exam is a pleasant white male, looking fairly older than stated age, very pale, worn out, fatigue. VITAL SIGNS: Blood pressure 120/60, respiration 18, pulse 90, afebrile. HEENT: The patient's head was atraumatic, normocephalic. Eyes: PERRLA without jaundice. Mouth and throat were normal. NECK: Supple, without JVD or thyromegaly. LUNGS: Diminished, poor movement of air. The patient has poor dentition. CARDIOVASCULAR: Regular sinus rhythm, S1, S2, without murmur, rub, thrill, or extra heart sound. ABDOMEN: Soft. Definite tenderness in the mid left lower quadrant areas. No rebounding or guarding. Positive bowel sounds. EXTREMITIES: No clubbing, cyanosis or edema. Stool hemoccult positive. NEUROLOGIC: The patient is alert and oriented x 3. The patient otherwise was alert and oriented. LABORATORY DATA: Labs demonstrated white count of 19,000 and down to 18.9 this morning, hemoglobin 10.4 and 32. His chemistries show low potassium of 3.3. Calcium was 7.7, but he does have a significantly low albumin of 2.4, hemoglobin A1c of 6. The patient's otherwise UA was unremarkable and influenza tests were negative although C. diff is still pending. He did have a positive C. diff as an outpatient. IMPRESSION: Therefore, C. difficile colitis, leukocytosis, anemia of chronic disease, hypokalemia, diarrhea. The patient had a positive C. difficile toxic gene back as far as 09/28 of this year, so he is still being treated with that and will be placed on vancomycin 150 mg 4 times a day. Patient is on SCDs since he is anemic, try to get some PT, OT for him and make further evaluation on him as indicated. AMARJIT TRIMBLE MD DR: REJI/kevin JOB#: [id number] / [id number]
[2019-01-03 15:21] VITALS: BP 129/68
[2019-01-03 20:23] VITALS: BP 108/56
[2019-01-03 23:26] VITALS: BP 106/56
[2019-01-04] VITALS (10 sets, daily range): BP systolic 99–128; BP diastolic 65–82
[2019-01-04] MEDS: IV NORMAL SALINE 1,000ML 1,000 ML IV SCH ×2 (06:20→22:13)
[2019-01-04 06:40] LABS: CALCIUM 7.9 mg/dL (8.5-10.1); CREATININE 0.9 mg/dL (0.7-1.3); GFR 82.3; POTASSIUM 3.6 mmol/L (3.5-5.1)
[2019-01-04 06:54] LABS: BASO # 0.1 x10^3/uL (0.0-0.2); BASO % 0 % (0-3); EOS # 0.1 x10^3/uL (0.0-0.7); EOS % 1 % (0-3); HEMATOCRIT 31.3 % (39.0-53.0); HEMOGLOBIN 10.2 g/dL (13.0-17.5); LYMPH # 0.8 x10^3/uL (1.0-4.8); LYMPH % 5 % (24-48); MEAN CORPUSCULAR HEMOGLOBIN 30 pg (25-35); MEAN CORPUSCULAR HGB CONC 33 g/dL (31-37); MEAN CORPUSCULAR VOLUME 90 fL (79-100); MONO # 1.3 x10^3/uL (0.0-1.1); MONO % 8 % (0-9); NEUT # 14.7 x10^3uL (1.8-7.7); NEUT % 87 % (31-73); PLATELET COUNT 205 x10^3/uL (140-400); RED BLOOD COUNT 3.47 x10^6/uL (4.30-5.70); RED CELL DISTRIBUTION WIDTH 13.4 % (11.5-14.5); WHITE BLOOD COUNT 16.9 x10^3/uL (4.0-11.0)
[2019-01-04] MEDS: AMMONIUM LACTATE 12% TOPICAL LOTION 226GM BOTTLE. TP SCH ×2 (08:16→21:27)
[2019-01-04] MEDS: VANCOMYCIN 125 MG/2.5 ML ORAL SOLUTION. PO SCH ×4 (08:16→21:27)
[2019-01-04] MEDS: METOCLOPRAMIDE 5 MG TABLET PO SCH ×4 (08:16→21:27)
[2019-01-04] MEDS: IPRATRPIUM/ALBUTEROL 0.5/2.5MG 3 ML NEBU. NEB SCH ×2 (09:00→21:49)
--- NOTE | 2019-01-04 11:18 | EKG ---
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
--- NOTE | 2019-01-04 14:48 | PDOC2 ---
CONSULT Date of Admission DATE: 01/04/19 TIME: 14:48 Reason for Consult: Arrhythmia on tele Referring Physician: Dr. Lawson Chief Complaint Weakness Source: Chart review, Patient Problem List Problems Medical Problems: (1) Ataxia Status: Acute History of Present Illness 73 y/o male with history of CAD s/p CABG [address] Camacho from [facility] presented with diarrhea, gen weakness and falls. Tele showed episodes of tachycardia and hence we have been consulted. Patient denied any previous history of arrhythmias. He denied any chest pain, dyspnea, palpitations or fili syncope. Past Medical History CAD s/p CABG HTN CVA HLP PE Past Surgical History CABG Family History not contributory Social History quit smoking several years ago, denied any current alcohol or drug use Current Medications Current Medications Sodium Chloride 1,000 ml @ 1,000 mls/hr 1X ONCE IV Last administered on 01/02/19at 10:20; Start 01/02/19 at 10:45; Stop 01/02/19 at 11:44; Status DC Acetaminophen (Tylenol) 650 mg PRN Q6HRS PRN PO PAIN / TEMP; Start 01/02/19 at 13:15 Diclofenac Sodium (Voltaren) 1 alan QID PRN TP JOINT PAIN; Start 01/02/19 at 13:15 Albuterol/ Ipratropium (Duoneb) 3 ml BID NEB Last administered on 01/03/19at 21:36; Start 01/02/19 at 21:00 Metoclopramide HCl (Reglan) 5 mg TIDACHC PO Last administered on 01/04/19at 11:46; Start 01/02/19 at 16:30 Metronidazole (Flagyl) 500 mg Q8HRS PO ; Start 01/02/19 at 14:00; Stop 01/02/19 at 13:20; Status DC Ondansetron HCl (Zofran Odt) 4 mg PRN Q6HRS PRN PO NAUSEA/VOMITING Last adm inistered on 01/04/19at 14:05; Start 01/02/19 at 13:15 Sodium Chloride 1,000 ml @ 125 mls/hr Q8H IV Last administered on 01/03/19at 06:17; Start 01/02/19 at 13:15; Stop 01/03/19 at 12:46; Status DC Lactic Acid (Lac-Hydrin) 1 alan BID TP Last administered on 01/04/19at 08:16; Start 01/02/19 at 21:00 Vancomycin HCl (Vancomycin Oral Solution) 125 mg [id number] PO Last administered on 01/04/19at 13:00; Start 01/02/19 at 13:30 Iohexol (Omnipaque 240 Mg/ml) 50 ml STK-MED ONCE .ROUTE ; Start 01/02/19 at 13: 31; Stop 01/02/19 at 13:32; Status DC Iohexol (Omnipaque 240 Mg/ml) 50 ml 1X ONCE PO Last administered on 01/02/19at 14:34; Start 01/02/19 at 13:45; Stop 01/02/19 at 13:46; Status DC Iohexol (Omnipaque 300 Mg/ml) 75 ml 1X ONCE IV Last administered on 01/02/19at 14:34; Start 01/02/19 at 13:45; Stop 01/02/19 at 13:46; Status DC Info (Do NOT chart on this entry -- for MONITORING) 1 each PRN DAILY PRN MC SEE COMMENTS; Start 01/02/19 at 13:45; Stop 01/04/19 at 13:44; Status DC Potassium Chloride (Klor-Con) 40 meq 1X ONCE PO Last administered on 01/03/19at 08:17; Start 01/03/19 at 08:00; Stop 01/03/19 at 08:01; Status DC Sodium Chloride 1,000 ml @ 75 mls/hr [id number] IV ; Start 01/03/19 at 17:00 Active Scripts Active Metoclopramide Hcl 5 Mg Tablet 5 Mg PO TIDACHC 30 Days Glucophage (Metformin Hcl) 500 Mg Tablet 500 Mg PO BIDWMEALS 30 Days Ondansetron Odt (Ondansetron) 4 Mg Tab.rapdis 4 Mg PO PRN Q6HRS PRN Demadex (Torsemide) 20 Mg Tablet 20 Mg PO QODAY 30 Days Coreg (Carvedilol) 3.125 Mg Tablet 3.125 Mg PO BIDWMEALS 30 Days Flagyl (Metronidazole) 500 Mg Tablet 500 Mg PO Q8HRS 10 Days Probiotic & Acidophilus Cap (Lactobac Cmb #3/Fos/Pantethine) 1 Each Capsule 1 Each PO BID 90 Days Reported Duoneb 0.5-3(2.5) Mg/3 Ml (Albuterol/Ipratropium) 3 Ml Ampul.neb 3 Ml NEB BID LAST DOSE GIVEN: DATE: TIME: AM NEXT DOSE DUE: DATE: TIME: PM Isosorbide Mononitrate Er (Isosorbide Mononitrate) 30 Mg Tab.er.24h 1 Tab PO DAILY LAST DOSE GIVEN: DATE: TIME: AM NEXT DOSE DUE: DATE: TOMORROW TIME: AM Ferrous Sulfate 325 Mg Tablet 1 Tab PO DAILY LAST DOSE GIVEN: DATE: TIME: AM NEXT DOSE DUE: DATE: TOMORROW TIME: AM Voltaren (Diclofenac Sodium) 100 Gm Gel..gram. 1 Gm TP QID PRN NOT GIVEN TODAY NEXT DOSE DUE: DATE: TIME: IF AND WHEN NEEDED B-12 (Cyanocobalamin (Vitamin B-12)) 1,000 Mcg Tablet.er 1,000 Mcg PO DAILY LAST DOSE GIVEN: DATE: TIME: AM NEXT DOSE DUE: DATE: TOMORR TIME: AM Vitamin D3 (Cholecalciferol (Vitamin D3)) 5,000 Unit Tablet 50,000 Unit PO QWE LAST DOSE GIVEN: DATE: 09/26 TIME: AM NEXT DOSE DUE: DATE: 10/03 TIME: AM Acetaminophen 500 Mg Tablet 650 Mg PO Q6HRS PRN NOT GIVEN TODAY NEXT DOSE DUE: DATE: TIME: IF AND WHEN NEEDED Stiolto Respimat Inhal [place] (Tiotropium Br/Olodaterol HCl) 4 Gm Mist.inhal 1 Puff INH DAILY PRN NOT GIVEN TODA;Y NEXT DOSE DUE: DATE: TIME: IF AND WHEN NEEDED Atorvastatin Calcium 80 Mg Tablet 1 Tab PO HS LAST DOSE GIVEN: DATE: YESTER TIME: AT BEDTIME NEXT DOSE DUE: DATE: TODAY TIME: AT BEDTIME Allergies: Coded Allergies: Penicillins (Verified Allergy, Intermediate, 09/16/18) Sulfa (Sulfonamide Antibiotics) (Verified Allergy, Intermediate, 09/16/18) General: YES: Fatigue PSYCHOLOGICAL ROS: No: Hallucinations Eyes: No: Loss of vision HEENT: No: Epistaxis Respiratory: No: Hemoptysis, Shortness of breath Cardiovascular: No: Chest Pain, Palpitations Gastrointestinal: YES: Nausea, Diarrhea Neurological: No: Seizures Skin: No: Rash General: Alert, No acute distress HEENT: Atraumatic, PERRLA Lungs: Clear to auscultation Heart: Regular rate Abdomen: Soft Extremities: Other (1+ edema) Psych/Mental Status: Mood NL VITALS Vital Signs Date Time Temp Pulse Resp B/P (MAP) Pulse Ox O2 Delivery O2 Flow Rate FiO2 01/04/19 14:34 97.9 108 18 116/79 (91) 95 Room Air Labs Laboratory Tests Test 01/03/19 00:28 01/03/19 06:14 01/03/19 07:28 01/03/19 10:52 Glucose (Fingerstick) 131 mg/dL (70-99) 100 mg/dL (70-99) White Blood Count 18.9 x10^3/uL (4.0-11.0) Red Blood Count 3.56 x10^6/uL (4.30-5.70) Hemoglobin 10.4 g/dL (13.0-17.5) Hematocrit 32.4 % (39.0-53.0) Mean Corpuscular Volume 91 fL (79-100) Mean Corpuscular Hemoglobin 29 pg (25-35) Mean Corpuscular Hemoglobin Concent 32 g/dL (31-37) Red Cell Distribution Width 13.4 % (11.5-14.5) Platelet Count 214 x10^3/uL (140-400) Neutrophils (%) (Auto) 88 % (31-73) Lymphocytes (%) (Auto) 4 % (24-48) Monocytes (%) (Auto) 7 % (0-9) Eosinophils (%) (Auto) 0 % (0-3) Basophils (%) (Auto) 0 % (0-3) Neutrophils # (Auto) 16.7 x10^3uL (1.8-7.7) Lymphocytes # (Auto) 0.8 x10^3/uL (1.0-4.8) Monocytes # (Auto) 1.3 x10^3/uL (0.0-1.1) Eosinophils # (Auto) 0.1 x10^3/uL (0.0-0.7) Basophils # (Auto) 0.0 x10^3/uL (0.0-0.2) Segmented Neutrophils % 87 % (35-66) Band Neutrophils % 2 % (0-9) Lymphocytes % 5 % (24-48) Monocytes % 6 % (0-10) Toxic Granulation Present Toxic Vacuolation Present Platelet Estimate Adequate (ADEQUATE) Poikilocytosis Slight Ovalocytes Few Crenated Cell Present Sodium Level 142 mmol/L (136-145) 141 mmol/L (136-145) Potassium Level 3.2 mmol/L (3.5-5.1) 3.3 mmol/L (3.5-5.1) Chloride Level 106 mmol/L (98-107) 105 mmol/L (98-107) Carbon Dioxide Level 29 mmol/L (21-32) 28 mmol/L (21-32) Anion Gap 7 (6-14) 8 (6-14) Blood Urea Nitrogen 14 mg/dL (8-26) 13 mg/dL (8-26) Creatinine 0.9 mg/dL (0.7-1.3) 1.0 mg/dL (0.7-1.3) Estimated GFR (Cockcroft-Gault) 82.3 72.8 Glucose Level 112 mg/dL (70-99) 185 mg/dL (70-99) Calcium Level 7.9 mg/dL (8.5-10.1) 7.7 mg/dL (8.5-10.1) Test 01/03/19 16:49 01/03/19 21:24 01/04/19 06:06 01/04/19 07:41 Glucose (Fingerstick) 152 mg/dL (70-99) 148 mg/dL (70-99) 105 mg/dL (70-99) White Blood Count 16.9 x10^3/uL (4.0-11.0) Red Blood Count 3.47 x10^6/uL (4.30-5.70) Hemoglobin 10.2 g/dL (13.0-17.5) Hematocrit 31.3 % (39.0-53.0) Mean Corpuscular Volume 90 fL (79-100) Mean Corpuscular Hemoglobin 30 pg (25-35) Mean Corpuscular Hemoglobin Concent 33 g/dL (31-37) Red Cell Distribution Width 13.4 % (11.5-14.5) Platelet Count 205 x10^3/uL (140-400) Neutrophils (%) (Auto) 87 % (31-73) Lymphocytes (%) (Auto) 5 % (24-48) Monocytes (%) (Auto) 8 % (0-9) Eosinophils (%) (Auto) 1 % (0-3) Basophils (%) (Auto) 0 % (0-3) Neutrophils # (Auto) 14.7 x10^3uL (1.8-7.7) Lymphocytes # (Auto) 0.8 x10^3/uL (1.0-4.8) Monocytes # (Auto) 1.3 x10^3/uL (0.0-1.1) Eosinophils # (Auto) 0.1 x10^3/uL (0.0-0.7) Basophils # (Auto) 0.1 x10^3/uL (0.0-0.2) Sodium Level 143 mmol/L (136-145) Potassium Level 3.6 mmol/L (3.5-5.1) Chloride Level 108 mmol/L (98-107) Carbon Dioxide Level 28 mmol/L (21-32) Anion Gap 7 (6-14) Blood Urea Nitrogen 13 mg/dL (8-26) Creatinine 0.9 mg/dL (0.7-1.3) Estimated GFR (Cockcroft-Gault) 82.3 Glucose Level 111 mg/dL (70-99) Calcium Level 7.9 mg/dL (8.5-10.1) Test 01/04/19 11:20 01/04/19 11:36 01/04/19 14:10 Troponin I Quantitative 0.061 ng/mL (0-0.055) 0.071 ng/mL (0-0.055) Glucose (Fingerstick) 167 mg/dL (70-99) Assessment/Plan 1. Paroxysmal atrial flutter on telemetry. Presently in SR. He is poor candidate for intermission coordinator anticoagulation. BP marginal. We will start amiodarone for rhythm maintenance. Check 2D echo to assess LVF 2. Slight trop elevation in a patient with known h/o CAD/CABG, most probably demand ischemia. Doubt ACS. 3. HLP: resume statins when able 4. Gen weakness, falls, DM-2: per IM Thank you for your consultation. KARLIE ROSADO MD Jan 04, 2019 14:48
[2019-01-04] MEDS ORDERED: AMIODARONE 150 MG in IV DEXTROSE 5% 100 ML IVP ONE (15:30)
[2019-01-04] MEDS ORDERED: AMIODARONE 900 MG in IV DEXTROSE 5% 500 ML IV ONE (15:30)
[2019-01-05] VITALS (20 sets, daily range): BP systolic 93–115; BP diastolic 54–71
--- NOTE | 2019-01-05 03:35 | PN ---
DATE: 01/04/2019 SUBJECTIVE: A 73-year-old male who began to have a heart rate of 150 or so, 130. Denied chest pain. EKG showed sinus tachycardia. The patient did have a slight elevated in his troponin. Cardiology was consulted. He was transferred to the Intensive Care Unit for this. Dr. Sweeney was kind enough to review the patient, made kind suggestions about his care and the patient has been stabilized here in the ICU. OBJECTIVE: VITAL SIGNS: Blood pressure is 120/60, pulse 108, afebrile. GENERAL: The patient is alert and oriented. LUNGS: Diminished throughout, poor movement of air, but clear. CARDIOVASCULAR: Tachycardic. ABDOMEN: Soft, nontender. EXTREMITIES: No clubbing, cyanosis or edema. NEUROLOGIC: The patient is neurologically at baseline, has some mild dementia, but otherwise seems to be resting fairly comfortably. Denies chest pain. The patient is continued to be monitored in the ICU. IMPRESSION: 1. Sinus tachycardia. 2. Clostridium difficile colitis. 3. Leukocytosis. 4. Anemia of chronic disease. 5. Hypokalemia. 6. Diarrhea. PLAN: The patient continued on vancomycin 150, SCDs, and make further evaluation with Dr. Sweeney as indicated. AMARJIT TRIMBLE MD DR: REJI/kevin JOB#: [id number] / [id number]
[2019-01-05 05:46] LABS: BASO % 0 % (0-3); EOS % 0 % (0-3); HEMATOCRIT 29.9 % (39.0-53.0); HEMOGLOBIN 9.8 g/dL (13.0-17.5); LYMPH # 0.7 x10^3/uL (1.0-4.8); LYMPH % 4 % (24-48); MEAN CORPUSCULAR HEMOGLOBIN 29 pg (25-35); MEAN CORPUSCULAR HGB CONC 33 g/dL (31-37); MEAN CORPUSCULAR VOLUME 90 fL (79-100); MONO # 1.5 x10^3/uL (0.0-1.1); MONO % 8 % (0-9); NEUT # 15.5 x10^3uL (1.8-7.7); NEUT % 87 % (31-73); PLATELET COUNT 184 x10^3/uL (140-400); RED BLOOD COUNT 3.32 x10^6/uL (4.30-5.70); RED CELL DISTRIBUTION WIDTH 13.3 % (11.5-14.5); WHITE BLOOD COUNT 17.7 x10^3/uL (4.0-11.0)
[2019-01-05 05:53] LABS: ALBUMIN 1.8 g/dL (3.4-5.0); ALBUMIN/GLOBULIN RATIO 0.5 (1.0-1.7); CALCIUM 7.7 mg/dL (8.5-10.1); CREATININE 1.1 mg/dL (0.7-1.3); GFR 65.3; POTASSIUM 3.8 mmol/L (3.5-5.1); TOTAL BILIRUBIN 0.4 mg/dL (0.2-1.0); TOTAL PROTEIN 5.2 g/dL (6.4-8.2)
[2019-01-05] MEDS: IV NORMAL SALINE 1,000ML 1,000 ML IV SCH ×2 (06:23→21:26)
[2019-01-05] MEDS: METOCLOPRAMIDE 5 MG TABLET PO SCH ×4 (08:04→21:25)
[2019-01-05] MEDS: AMIODARONE HCL 200 MG TABLET PO SCH (08:59)
[2019-01-05] MEDS: VANCOMYCIN 125 MG/2.5 ML ORAL SOLUTION. PO SCH ×4 (08:59→21:26)
[2019-01-05] MEDS: AMMONIUM LACTATE 12% TOPICAL LOTION 226GM BOTTLE. TP SCH ×2 (09:00→21:29)
[2019-01-05] MEDS: METOPROLOL TART IMMED RELEASE 25 MG TABLET PO SCH ×3 (11:32→23:49)
[2019-01-05] MEDS: IPRATRPIUM/ALBUTEROL 0.5/2.5MG 3 ML NEBU. NEB SCH ×2 (11:32→20:42)
--- NOTE | 2019-01-05 12:43 | PDOC ---
PROVIDER NOTE PROVIDER NOTE PROVIDER NOTE Cardiology Progress Note: S: No acute events overnight. Back in SR today. O: VSS No edema. Normal heart tones. Neck veins flat. Labs reviewed OSH records reviewed. EF 30% on echo in June 2018 He had declined ICD Prior 4V CABG with MARI to LAD, SVG to ramus/OM1 and SVG to PDA. Prior meds included torsemide and spironolactone Impression: 1. PAF with RVR 2. Ischemic CMP with EF of 30% 3. PAD 4. NSTEMI - Type 2. Plan: 1. Currently in SR 2. Continue Metoprolol and Amiodarone 3. Will defer any initiation of afterload reduction given lower blood pressures. He will likely need evaluation by the HF clinic at [facility]. 4. Consider anticoagulation based on afib burden after discharge. Given falls, will hold off. Supportive care. CONOR BERRY MD Jan 05, 2019 12:43
[2019-01-05] MEDS ORDERED: PHENAZOPYRIDINE 200 MG TABLET. PO PRN (13:45)
[2019-01-05] MEDS ORDERED: PHENAZOPYRIDINE 100 MG TABLET. PO ONE (14:00)
[2019-01-05] MEDS: DOXYCYCLINE HYCLATE 100 MG TABLET PO SCH (21:26)
[2019-01-05] MEDS: TAMSULOSIN 0.4 MG CAP.ER.24H. PO SCH (21:27)
[2019-01-05] MEDS ORDERED: FUROSEMIDE 20 MG/2 ML VIAL IVP ONE (21:30)
[2019-01-06] VITALS (13 sets, daily range): BP systolic 95–120; BP diastolic 53–97
[2019-01-06] MEDS: METOPROLOL TART IMMED RELEASE 25 MG TABLET PO SCH ×4 (06:00→23:55)
[2019-01-06] MEDS: METOCLOPRAMIDE 5 MG TABLET PO SCH ×4 (07:50→21:27)
[2019-01-06] MEDS: DOXYCYCLINE HYCLATE 100 MG TABLET PO SCH ×2 (08:33→21:27)
[2019-01-06] MEDS: TAMSULOSIN 0.4 MG CAP.ER.24H. PO SCH (08:33)
[2019-01-06] MEDS: VANCOMYCIN 125 MG/2.5 ML ORAL SOLUTION. PO SCH ×4 (08:34→21:27)
[2019-01-06] MEDS: AMIODARONE HCL 200 MG TABLET PO SCH (08:34)
[2019-01-06] MEDS: AMMONIUM LACTATE 12% TOPICAL LOTION 226GM BOTTLE. TP SCH ×2 (08:35→21:27)
--- NOTE | 2019-01-06 08:57 | RAD ---
Abdominal and Pelvis CT, Without Contrast: History: Follow-up colitis. Comparison: January 02, 2019. Procedure: Axial images are obtained of the abdomen and pelvis, without IV or oral contrast. CT Abdomen without Contrast: Findings: Evaluation of solid organs is limited without contrast. Evaluation of stomach and bowel is limited without oral contrast. There is a small left effusion and consolidation of the left lung base. There is fluid along the liver and in the right paracolic gutter. There is minimal fluid in the left paracolic gutter. Liver: Normal. Spleen: Normal. Pancreas: Normal. Adrenal Glands: Normal. Kidneys: Normal. There is no free air. There is no lymphadenopathy. Impression: Please see CT Pelvis without Contrast. End Impression. CT Pelvis without Contrast: Findings: The urinary bladder appears normal. There is mild free fluid. There is no lymphadenopathy. There is no pericolonic inflammation identified. There is mild to moderate wall thickening of the left colon. Impression: 1. Mild to moderate wall thickening of the left colon is consistent with pancolitis and could be infectious such as pseudomembranous colitis or could be inflammatory such as ulcerative colitis. This appears slightly improved. 2. Mild ascites is new. 3. Small left effusion and consolidation in the left lung base unchanged. End impression PQRS Compliance Statement: One or more of the following individualized dose reduction techniques were utilized for this examination: 1. Automated exposure control 2. Adjustment of the mA and/or kV according to patient size 3. Use of iterative reconstruction technique Electronically signed by: Armin May III, MD (01/06/2019 8:54 AM) [facility]
[2019-01-06] MEDS: IV NORMAL SALINE 1,000ML 1,000 ML IV SCH (11:00)
[2019-01-06] MEDS: IPRATRPIUM/ALBUTEROL 0.5/2.5MG 3 ML NEBU. NEB SCH ×2 (12:04→20:48)
--- NOTE | 2019-01-06 14:29 | PDOC ---
PROVIDER NOTE PROVIDER NOTE PROVIDER NOTE No acute events. Stop IVF, restart home torsemide Nothing further from CV standpoint Discussed with who wants conservative mgmt. He can f/u with Dr. Camacho and consider anticoagulation based on afib burden. Thanks CONOR BERRY MD Jan 06, 2019 14:29
--- NOTE | 2019-01-06 14:42 | PN ---
DATE: SUBJECTIVE: A 73-year-old gentleman in with acute exacerbation of chronic obstructive pulmonary disease with bronchitis and the like and patient had been going into sinus tachycardia, rate up to 130, was placed on an amiodarone drip by Cardiology, switched over to his ____ with his metoprolol, beta shalom is making fairly good progress overall. OBJECTIVE: VITAL SIGNS: Blood pressure 110/60, respirations 18, pulse 81, afebrile. The patient has 99% oxygen saturation. Poor urinary output, however, we will continue to monitor that. LUNGS: Otherwise, the patient's lungs are diminished throughout, some crackles in the bases. CARDIOVASCULAR: Irregularly irregular. ABDOMEN: Soft, nontender. EXTREMITIES: No clubbing, cyanosis. Trace edema noted. NEUROLOGIC: Baseline for him with mild dementia there. LABORATORY DATA: Otherwise, white count still elevated. He is still complaining of some problems with his abdomen, initially came in with colitis. Continue on the vancomycin. He is not running any temperature. We will repeat a CT scan because he continues to report pain in his left lower quadrant area. We will get a repeat ____ colitis is clearing up if at all otherwise. IMPRESSION: Paroxysmal atrial fibrillation with rapid ventricular response with that of colitis; leukocytosis; anemia of chronic disease; severe protein malnutrition, to get a dietary consultation; hyperglycemia. PLAN: As above. Continue to monitor here in the ICU. He is on an amiodarone drip as well as monitoring with his metoprolol. AMARJIT TRIMBLE MD DR: REJI/kevin JOB#: [id number] / [id number]
[2019-01-06] MEDS ORDERED: ACETAMINOPHEN 650 MG SUPP.RECT. PR PRN (19:15)
--- NOTE | 2019-01-06 21:32 | PN ---
DATE: 01/06/2019 SUBJECTIVE: A 73-year-old gentleman still very weak, having multiple medical issues here. The patient's CT scan still shows inflammation down in his colon consistent with colitis. He has been receiving oral vancomycin for C. difficile, but switched him on top of that too on IV antibiotic as well. The patient also has had control of his rapid ventricular response of atrial fibrillation with amiodarone and metoprolol produced by the electronic engraver and he is making fairly good progress there, but still very weak, will get PT, OT. Blood pressure ordered 106/60, respiratory rate 16, pulse 90-100. He is afebrile, oxygen saturation 2% at 98. The patient still needs a great deal of rehab work ____. His labs still show an elevated white count around 17,000. We will see what he does with the IV antibiotic therapies. His albumin is still severely low at 1.8, trying to get dietary consult to see what we can do to increase that. May need to give him some albumin as he is severely protein malnourished. OBJECTIVE: LUNGS: Diminished throughout. CARDIOVASCULAR: Irregularly irregular. ABDOMEN: Soft, nontender. NEUROLOGIC: The patient has a very weak affect. IMPRESSION: Paroxysmal atrial fibrillation with rapid ventricular response, colitis, leukocytosis, anemia of chronic disease, severe protein malnutrition, severe weakness and debilitation. PLAN: As above. Continue to monitor the patient accordingly. Continue with IV antibiotic therapy and physical and occupational therapy and protein supplementation. AMARJIT TRIMBLE MD DR: REJI/kevin JOB#: [id number] / [id number]
[2019-01-07 01:33] VITALS: BP 100/59
[2019-01-07 04:00] VITALS: BP 106/61
[2019-01-07] MEDS: METOPROLOL TART IMMED RELEASE 25 MG TABLET PO SCH ×2 (05:55→12:08)
[2019-01-07 06:32] LABS: BASO % 0 % (0-3); EOS % 0 % (0-3); HEMOGLOBIN 9.2 g/dL (13.0-17.5); LYMPH # 0.7 x10^3/uL (1.0-4.8); LYMPH % 5 % (24-48); MEAN CORPUSCULAR HEMOGLOBIN 30 pg (25-35); MEAN CORPUSCULAR HGB CONC 33 g/dL (31-37); MEAN CORPUSCULAR VOLUME 90 fL (79-100); MONO # 1.3 x10^3/uL (0.0-1.1); MONO % 9 % (0-9); NEUT % 85 % (31-73); PLATELET COUNT 172 x10^3/uL (140-400); RED BLOOD COUNT 3.09 x10^6/uL (4.30-5.70); RED CELL DISTRIBUTION WIDTH 13.2 % (11.5-14.5); WHITE BLOOD COUNT 14.1 x10^3/uL (4.0-11.0)
[2019-01-07 06:37] LABS: CALCIUM 7.8 mg/dL (8.5-10.1); CREATININE 1.1 mg/dL (0.7-1.3); GFR 65.3; POTASSIUM 3.9 mmol/L (3.5-5.1)
[2019-01-07 07:55] VITALS: BP 102/62
[2019-01-07] MEDS: METOCLOPRAMIDE 5 MG TABLET PO SCH ×2 (08:26→12:08)
[2019-01-07] MEDS: DOXYCYCLINE HYCLATE 100 MG TABLET PO SCH (08:26)
[2019-01-07] MEDS: VANCOMYCIN 125 MG/2.5 ML ORAL SOLUTION. PO SCH ×2 (08:26→12:10)
[2019-01-07] MEDS: TAMSULOSIN 0.4 MG CAP.ER.24H. PO SCH (08:27)
[2019-01-07] MEDS: AMIODARONE HCL 200 MG TABLET PO SCH (08:27)
[2019-01-07] MEDS: AMMONIUM LACTATE 12% TOPICAL LOTION 226GM BOTTLE. TP SCH (08:28)
[2019-01-07] MEDS ORDERED: TORSEMIDE 20 MG TABLET. PO SCH (09:00)
[2019-01-07] MEDS: IPRATRPIUM/ALBUTEROL 0.5/2.5MG 3 ML NEBU. NEB SCH (09:48)
[2019-01-07 10:32] VITALS: BP 111/60
[2019-01-07] MEDS ORDERED: NYSTATIN TOPICAL POWDER 15GM BOTTLE. TP PRN (12:15)
[2019-01-07] MEDS ORDERED: DOXY100T PO (13:07)
[2019-01-07] MEDS ORDERED: AMIO200T4 PO (13:07)
[2019-01-07] MEDS ORDERED: TAMS0.4C97 PO (13:07)
[2019-01-07] MEDS ORDERED: METO25TA4 PO (13:07)
[2019-01-07] MEDS ORDERED: AMMO225L5 TP (13:07)
[2019-01-07] MEDS ORDERED: VANC500V PO (13:07)
[2019-01-07] MEDS ORDERED: NYST60PO TP (13:07)
[2019-01-07] MEDS ORDERED: PHEN-444 PO (13:07)
[2019-01-07] MEDS ORDERED: METR500T PO (13:07)
[2019-01-07 14:40] VITALS: BP 94/62
[2019-01-07] MEDS ORDERED: metFORMIN 500 MG TABLET PO SCH (17:00)
[2019-01-07] MEDS ORDERED: LACTOBACILLUS RHAMNOSUS GG 1 CAPSULE. PO SCH (21:00)
--- NOTE | 2019-01-08 08:54 | DS ---
DATE OF DISCHARGE: 01/07/2019 HOSPITAL COURSE: A 73-year-old gentleman who was discharged 01/07/2019. The patient came in with colitis, possible C. difficile. He has been switched over from oral Flagyl to vancomycin, made excellent progress with that, although the patient was still extremely weak and having problems with mobility. He was eventually sent over to skilled. His white count was coming down gradually from 19,000 down to 14,000 and is making fairly good progress there. He had severe protein malnutrition and we then asked the dietitian to review him there. The patient has slight elevation of his troponins. Cardiology was consulted on that as well. See Dr. Alford's notes there. They were going to monitor him. The patient otherwise had anemia of chronic disease. The patient otherwise had elevated glucose, as he has type 2 diabetes. The patient otherwise made good progress during the rest of his hospitalization. He was kept on SCD hoses and he was encouraged to get additional nutritional support. IMPRESSION: Clostridium difficile colitis, left pleural effusion, mild ascites, urinary retention, small left effusion and consolidation in the left lung, mild dementia, generalized deconditioning. PLAN: The patient will be transferred to skilled unit for continued rehab, continued IV antibiotic therapy and make further evaluation on him at that facility as well. AMARJIT TRIMBLE MD DR: REJI/kevin JOB#: [id number] / [id number]
== END 2019-01-07 15:22 | DRG 371 ==
LOC: ER 08:42 → 1 SOUTH 12:00 → ICU 01-04 18:21
PROVIDERS: ADMIT Family Medicine; ATTEND Family Medicine
DX: A04.72 Enterocolitis due to Clostridium difficile, not specified as recurrent (principal); E43 Unspecified severe protein-calorie malnutrition; I21.A1 Myocardial infarction type 2; I48.92 Unspecified atrial flutter; J44.1 Chronic obstructive pulmonary disease with (acute) exacerbation; J90 Pleural effusion, not elsewhere classified; R18.8 Other ascites; R27.0 Ataxia, unspecified; E87.6 Hypokalemia; D63.8 Anemia in other chronic diseases classified elsewhere; E11.65 Type 2 diabetes mellitus with hyperglycemia; E78.00 Pure hypercholesterolemia, unspecified; E78.5 Hyperlipidemia, unspecified; E86.0 Dehydration; F03.90 Unspecified dementia, unspecified severity, without behavioral disturbance, psychotic disturbance, mood disturbance, and anxiety; I10 Essential (primary) hypertension; I25.10 Atherosclerotic heart disease of native coronary artery without angina pectoris; I25.5 Ischemic cardiomyopathy; I48.0 Paroxysmal atrial fibrillation; I95.1 Orthostatic hypotension; Z66 Do not resuscitate; Z83.3 Family history of diabetes mellitus; Z86.711 Personal history of pulmonary embolism; Z86.73 Personal history of transient ischemic attack (TIA), and cerebral infarction without residual deficits; Z87.891 Personal history of nicotine dependence; Z95.1 Presence of aortocoronary bypass graft; I25.2 Old myocardial infarction; Z88.0 Allergy status to penicillin; Z88.2 Allergy status to sulfonamides; Z88.8 Allergy status to other drugs, medicaments and biological substances; E11.51 Type 2 diabetes mellitus with diabetic peripheral angiopathy without gangrene; R33.9 Retention of urine, unspecified; Z68.25 Body mass index [BMI] 25.0-25.9, adult
CPT/HCPCS: 36415; 70450; 71045; 74176; 74177; 80048; 80053; 81001; 82607; 82947; 83036; 83605; 84134; 84145; 84443; 84484; 85007; 85025; 87040; 87804; 93005; 94640; 96360; J0282; J3490; J7620; J8597; P9612; Q0162; Q9966; Q9967; 97110; 97116; 97530; 97535; 99285-25; J7030

== ENCOUNTER 2019-01-07 12:01 | Inpatient (IN) | payer MEDICARE, BC ==
[~2019-01-07] VITALS: Ht 170.2 cm; Wt 70.0 kg
[2019-01-07] MEDS ORDERED: METR500T PO (13:07)
[2019-01-07] MEDS ORDERED: VANC500V PO (13:07)
[2019-01-07] MEDS ORDERED: AMMO225L5 TP (13:07)
[2019-01-07] MEDS ORDERED: NYST60PO TP (13:07)
[2019-01-07] MEDS ORDERED: METO25TA4 PO (13:07)
[2019-01-07] MEDS ORDERED: AMIO200T4 PO (13:07)
[2019-01-07] MEDS ORDERED: PHEN-444 PO (13:07)
[2019-01-07] MEDS ORDERED: DOXY100T PO (13:07)
[2019-01-07] MEDS ORDERED: TAMS0.4C97 PO (13:07)
[2019-01-07] MEDS ORDERED: DICLOFENAC SODIUM 1% TOPICAL GEL 100GM TUBE. TP PRN (15:30)
[2019-01-07] MEDS ORDERED: ACETAMINOPHEN 500 MG TABLET PO PRN (15:30)
[2019-01-07] MEDS ORDERED: TIOTROPIUM BR INH PRN (15:30)
[2019-01-07] MEDS ORDERED: ONDANSETRON ODT 4 MG TAB.RAPDIS PO PRN (15:30)
[2019-01-07] MEDS ORDERED: OLODATEROL HCL INH PRN (15:30)
[2019-01-07] MEDS ORDERED: NYSTATIN TOPICAL POWDER 15GM BOTTLE. TP PRN (15:30)
[2019-01-07] MEDS ORDERED: PHENAZOPYRIDINE 200 MG TABLET. PO PRN (15:30)
[2019-01-07 16:10] VITALS: BP 102/70
[2019-01-07] MEDS ORDERED: POLYETHYLENE GLYCOL 3350 17 GM PACKET. PO PRN (16:15)
[2019-01-07] MEDS: metFORMIN 500 MG TABLET PO SCH (17:48)
[2019-01-07] MEDS: METOCLOPRAMIDE 5 MG TABLET PO SCH ×2 (17:48→20:14)
[2019-01-07] MEDS: METOPROLOL TART IMMED RELEASE 25 MG TABLET PO SCH ×2 (17:48→22:53)
[2019-01-07] MEDS: VANCOMYCIN 125 MG/2.5 ML ORAL SOLUTION. PO SCH ×2 (18:15→20:15)
[2019-01-07 18:20] VITALS: BP 107/71
[2019-01-07] MEDS: LACTOBACILLUS RHAMNOSUS GG 1 CAPSULE. PO SCH (20:14)
[2019-01-07] MEDS: AMMONIUM LACTATE 12% TOPICAL LOTION 226GM BOTTLE. TP SCH (20:15)
[2019-01-07] MEDS: IPRATRPIUM/ALBUTEROL 0.5/2.5MG 3 ML NEBU. NEB SCH (21:00)
[2019-01-07] MEDS ORDERED: DOXYCYCLINE HYCLATE 100 MG TABLET PO SCH (21:00)
[2019-01-07] MEDS: metroNIDAZOLE 500 MG TABLET PO SCH (22:52)
[2019-01-08 05:18] VITALS: BP 110/68
[2019-01-08] MEDS: metroNIDAZOLE 500 MG TABLET PO SCH ×3 (06:19→20:36)
[2019-01-08] MEDS: METOPROLOL TART IMMED RELEASE 25 MG TABLET PO SCH ×4 (06:20→23:55)
[2019-01-08] MEDS: AMIODARONE HCL 200 MG TABLET PO SCH (07:59)
[2019-01-08] MEDS: metFORMIN 500 MG TABLET PO SCH ×2 (07:59→15:30)
[2019-01-08] MEDS: METOCLOPRAMIDE 5 MG TABLET PO SCH ×4 (07:59→20:37)
[2019-01-08] MEDS: LACTOBACILLUS RHAMNOSUS GG 1 CAPSULE. PO SCH ×2 (08:00→20:37)
[2019-01-08] MEDS: TAMSULOSIN 0.4 MG CAP.ER.24H. PO SCH (08:00)
[2019-01-08] MEDS: VANCOMYCIN 125 MG/2.5 ML ORAL SOLUTION. PO SCH ×4 (08:36→20:37)
[2019-01-08] MEDS: AMMONIUM LACTATE 12% TOPICAL LOTION 226GM BOTTLE. TP SCH ×2 (09:00→20:42)
[2019-01-08] MEDS: IPRATRPIUM/ALBUTEROL 0.5/2.5MG 3 ML NEBU. NEB SCH ×2 (09:49→20:40)
[2019-01-08 18:53] VITALS: BP 118/79
[2019-01-09 05:23] VITALS: BP 111/67
[2019-01-09] MEDS: metroNIDAZOLE 500 MG TABLET PO SCH ×3 (05:41→22:14)
[2019-01-09] MEDS: METOPROLOL TART IMMED RELEASE 25 MG TABLET PO SCH ×3 (05:42→17:04)
[2019-01-09] MEDS: LACTOBACILLUS RHAMNOSUS GG 1 CAPSULE. PO SCH ×2 (08:03→19:54)
[2019-01-09] MEDS: TAMSULOSIN 0.4 MG CAP.ER.24H. PO SCH (08:03)
[2019-01-09] MEDS: metFORMIN 500 MG TABLET PO SCH ×2 (08:03→17:00)
[2019-01-09] MEDS: METOCLOPRAMIDE 5 MG TABLET PO SCH ×4 (08:04→19:54)
[2019-01-09] MEDS: AMIODARONE HCL 200 MG TABLET PO SCH (08:04)
[2019-01-09] MEDS: VANCOMYCIN 125 MG/2.5 ML ORAL SOLUTION. PO SCH ×4 (08:06→19:54)
[2019-01-09] MEDS: AMMONIUM LACTATE 12% TOPICAL LOTION 226GM BOTTLE. TP SCH ×2 (08:07→20:03)
[2019-01-09] MEDS: TORSEMIDE 20 MG TABLET. PO SCH (08:09)
[2019-01-09] MEDS: IPRATRPIUM/ALBUTEROL 0.5/2.5MG 3 ML NEBU. NEB SCH ×2 (09:12→22:17)
[2019-01-09 17:04] VITALS: BP 92/60
[2019-01-09] MEDS: MEGESTROL 40 MG TABLET. PO SCH (19:54)
[2019-01-10] MEDS: METOPROLOL TART IMMED RELEASE 25 MG TABLET PO SCH ×4 (00:04→17:16)
[2019-01-10 05:22] VITALS: BP 102/64
[2019-01-10] MEDS: metroNIDAZOLE 500 MG TABLET PO SCH ×3 (05:30→20:15)
[2019-01-10] MEDS: MEGESTROL 40 MG TABLET. PO SCH ×2 (07:52→20:16)
[2019-01-10] MEDS: METOCLOPRAMIDE 5 MG TABLET PO SCH ×4 (07:52→20:16)
[2019-01-10] MEDS: LACTOBACILLUS RHAMNOSUS GG 1 CAPSULE. PO SCH ×2 (07:52→20:16)
[2019-01-10] MEDS: TAMSULOSIN 0.4 MG CAP.ER.24H. PO SCH (07:52)
[2019-01-10] MEDS: metFORMIN 500 MG TABLET PO SCH ×2 (07:52→16:56)
[2019-01-10] MEDS: AMIODARONE HCL 200 MG TABLET PO SCH (07:53)
[2019-01-10] MEDS: AMMONIUM LACTATE 12% TOPICAL LOTION 226GM BOTTLE. TP SCH ×2 (07:54→20:16)
[2019-01-10] MEDS: VANCOMYCIN 125 MG/2.5 ML ORAL SOLUTION. PO SCH ×4 (09:19→20:15)
[2019-01-10] MEDS: IPRATRPIUM/ALBUTEROL 0.5/2.5MG 3 ML NEBU. NEB SCH ×2 (09:20→20:49)
[2019-01-10 15:15] VITALS: BP 108/69
[2019-01-10 15:45] LABS: BASO % 0 % (0-3); EOS % 0 % (0-3); HEMATOCRIT 29.1 % (39.0-53.0); HEMOGLOBIN 9.6 g/dL (13.0-17.5); LYMPH # 0.7 x10^3/uL (1.0-4.8); LYMPH % 5 % (24-48); MEAN CORPUSCULAR HEMOGLOBIN 29 pg (25-35); MEAN CORPUSCULAR HGB CONC 33 g/dL (31-37); MEAN CORPUSCULAR VOLUME 89 fL (79-100); MONO % 7 % (0-9); NEUT # 12.1 x10^3uL (1.8-7.7); NEUT % 88 % (31-73); PLATELET COUNT 206 x10^3/uL (140-400); RED BLOOD COUNT 3.28 x10^6/uL (4.30-5.70); RED CELL DISTRIBUTION WIDTH 13.9 % (11.5-14.5); WHITE BLOOD COUNT 13.8 x10^3/uL (4.0-11.0)
[2019-01-10 16:09] LABS: ALBUMIN 1.9 g/dL (3.4-5.0); ALBUMIN/GLOBULIN RATIO 0.6 (1.0-1.7); CALCIUM 8.6 mg/dL (8.5-10.1); CREATININE 1.5 mg/dL (0.7-1.3); GFR 45.6; POTASSIUM 3.8 mmol/L (3.5-5.1); TOTAL BILIRUBIN 0.3 mg/dL (0.2-1.0); TOTAL PROTEIN 5.2 g/dL (6.4-8.2)
[2019-01-10 17:53] VITALS: BP 109/69
[2019-01-11] MEDS: METOPROLOL TART IMMED RELEASE 25 MG TABLET PO SCH ×4 (00:15→18:00)
[2019-01-11 05:24] VITALS: BP 120/54
[2019-01-11] MEDS: metroNIDAZOLE 500 MG TABLET PO SCH ×3 (06:07→21:27)
[2019-01-11] MEDS: METOCLOPRAMIDE 5 MG TABLET PO SCH ×4 (08:47→21:26)
[2019-01-11] MEDS: LACTOBACILLUS RHAMNOSUS GG 1 CAPSULE. PO SCH ×2 (08:47→21:27)
[2019-01-11] MEDS: TAMSULOSIN 0.4 MG CAP.ER.24H. PO SCH (08:47)
[2019-01-11] MEDS: metFORMIN 500 MG TABLET PO SCH ×2 (08:48→16:49)
[2019-01-11] MEDS: MEGESTROL 40 MG TABLET. PO SCH ×2 (08:48→21:26)
[2019-01-11] MEDS: TORSEMIDE 20 MG TABLET. PO SCH ×2 (08:48→09:59)
[2019-01-11] MEDS: AMIODARONE HCL 200 MG TABLET PO SCH (08:48)
[2019-01-11] MEDS: VANCOMYCIN 125 MG/2.5 ML ORAL SOLUTION. PO SCH ×4 (08:50→21:27)
[2019-01-11] MEDS: AMMONIUM LACTATE 12% TOPICAL LOTION 226GM BOTTLE. TP SCH ×2 (08:50→21:27)
[2019-01-11] MEDS: buPROPion XL 150 MG TAB.ER.24H PO SCH (10:12)
[2019-01-11] MEDS: IPRATRPIUM/ALBUTEROL 0.5/2.5MG 3 ML NEBU. NEB SCH ×2 (10:12→22:14)
--- NOTE | 2019-01-11 14:12 | CONS ---
DATE OF CONSULTATION: 01/10/2019 PSYCHIATRIC CONSULTATION This is a late entry date of service 01/10/2019 covers elements not covered in my initial note 01/10/2019. SUBJECTIVE: I met with the patient evening of 01/10/2019. IDENTIFYING DATA: The patient is a 73-year-old male who is currently on the senior care unit referred by Dr. Lawson, his primary care physician for evaluation of depression as the patient is noted to be somewhat apathetic, amotivated, withdrawn, unable to participate actively in physical therapy and rehabilitation. Despite his relatively young age of 73, he is not doing for himself enough that staff feels he should be able to do for his physical status. I have been asked to consult to make recommendations from a psychiatric standpoint to help with his mood, apathy, amotivation, anhedonia that might help facilitate a successful rehab for him. CHIEF COMPLAINT: "Yes maybe I been depressed. I used to be a [employer]. I have one son who lives in [place]. I used to have a problem with alcohol when I was young, but not now." HISTORY OF PRESENT ILLNESS: The patient was initially admitted 01/02/2019 after he was having repeated falls at home, problems with generalized weakness and diarrhea. He hit his head when he fell at home and had been staggering around when he came in through the ER. He was noted to be weak with orthostasis and hypotension at times. He appeared more confused as well. He was treated for C. diff and medically stabilized for his colitis and diabetes within the context of his CVA in the past. He remains depressed, withdrawn. No active suicidal or homicidal ideation. He is apathetic, amotivated. No clear history of bipolar disorder. PAST PSYCHIATRIC HISTORY: As noted above including past history of alcohol abuse. PAST MEDICAL HISTORY: As noted above, in addition to CVA, coronary artery bypass graft, hypercholesterolemia, pulmonary embolism. He does smoke and has done so for 50 years, history of frequent falls. BPH. CURRENT PSYCHOTROPICS: Negative. FAMILY HISTORY: Noncontributory. DRUG ALLERGIES: PENICILLIN, SULFA. SOCIAL HISTORY: The patient is and lives at home with his . CODE STATUS: DNR. MENTAL STATUS EXAMINATION: The patient was seen individually evening of 01/10/2019. He is oriented to himself and situation. Speech has some latency, often responses monosyllabic. Thought processes goal directed. Intellect average. Insight somewhat limited. Judgment intact to standard questioning. Mood is depressed. Affect is mood congruent. No active suicidal or homicidal ideation. LABORATORY DATA: Reviewed. IMPRESSION: Major depressive disorder, recurrent, severe; insomnia; anxiety disorder, unspecified. Rest as above. PLAN: From a psychiatric standpoint, it seems that the patient will benefit from being on antidepressants. We will initiate Wellbutrin-XL 150 mg a day in the morning. Start Remeron 7.5 mg p.o. at bedtime for his insomnia and to augment the Wellbutrin and this should help stimulate his appetite as well. We would recommend checking a thyroid status as well. We will make further adjustments depending on his response to these current suggestions. Dr. Lawson, thank you for the opportunity to participate in your patient's care. We will follow with you. MAN Randy GUTIERREZ MD DR: ISSAC/kevin JOB#: [id number] / [id number]
[2019-01-11 18:13] VITALS: BP 103/64
--- NOTE | 2019-01-11 21:26 | PDOC ---
Exam Note: Dave Note: Please also refer to the separate dictated note~for this date of service dictated separately.~Patient seen individually. Discussed the patient with Nursing staff reviewed the chart.~Reviewed interim history and current functioning. Reviewed vital signs,~Labs/ Radiology~and current medications noted below. Continue current treatment with the changes noted in the dictated addendum note Assessment: Vital Signs/I&O: Vital Signs Date Time Temp Pulse Resp B/P (MAP) Pulse Ox O2 Delivery O2 Flow Rate FiO2 01/11/19 18:13 97.8 91 20 103/64 (77) 96 Room Air I & O 01/10/19 01/10/19 01/11/19 15:00 23:00 07:00 Intake Total 720 ml 240 ml 200 ml Output Total 250 ml 190 ml Balance 470 ml 240 ml 10 ml Labs: Laboratory Tests Test 01/11/19 08:20 01/11/19 12:10 01/11/19 16:47 01/11/19 19:22 Glucose (Fingerstick) 107 mg/dL (70-99) H 185 mg/dL (70-99) H 160 mg/dL (70-99) H 136 mg/dL (70-99) H Current Medications: Meds: Current Medications Medications (Trade) Dose Ordered Sig/Nikolay Route PRN Reason Start Time Stop Time Status Last Admin Dose Admin Bupropion HCl (Wellbutrin Xl) 150 mg DAILY PO 01/11/19 09:00 01/11/19 10:12 I have reviewed the current psychotropics carefully including drug interactions. Risk benefit ratio favors no change other than as noted in my dictated progress note. Diagnosis: Problems: (1) Colitis (2) Paroxysmal A-fib (3) Severe protein-calorie malnutrition (4) Weakness generalized (5) Generalized weakness (6) Pleural effusion (7) Poorly controlled type 2 diabetes mellitus (8) Hypokalemia (9) Syncope (10) CKD (chronic kidney disease), stage III (11) Type 2 diabetes mellitus (12) Pulmonary emboli (13) Pneumonia (14) Clostridioides difficile infection SHAHBAZ GUTIERREZ MD Jan 11, 2019 21:26
[2019-01-11] MEDS: MIRTAZAPINE 7.5 MG TABLET. PO SCH (21:27)
[2019-01-12] MEDS: METOPROLOL TART IMMED RELEASE 25 MG TABLET PO SCH ×5 (00:48→23:40)
[2019-01-12] MEDS: metroNIDAZOLE 500 MG TABLET PO SCH ×3 (05:43→21:21)
[2019-01-12 06:05] VITALS: BP 110/62
[2019-01-12 08:04] LABS: BASO % 0 % (0-3); EOS # 0.1 x10^3/uL (0.0-0.7); EOS % 1 % (0-3); HEMATOCRIT 25.6 % (39.0-53.0); HEMOGLOBIN 8.7 g/dL (13.0-17.5); LYMPH # 0.9 x10^3/uL (1.0-4.8); LYMPH % 9 % (24-48); MEAN CORPUSCULAR HEMOGLOBIN 30 pg (25-35); MEAN CORPUSCULAR HGB CONC 34 g/dL (31-37); MEAN CORPUSCULAR VOLUME 88 fL (79-100); MONO # 0.9 x10^3/uL (0.0-1.1); MONO % 9 % (0-9); NEUT # 8.3 x10^3uL (1.8-7.7); NEUT % 82 % (31-73); PLATELET COUNT 196 x10^3/uL (140-400); RED CELL DISTRIBUTION WIDTH 14.2 % (11.5-14.5); WHITE BLOOD COUNT 10.1 x10^3/uL (4.0-11.0)
[2019-01-12 08:22] LABS: ALBUMIN 1.7 g/dL (3.4-5.0); ALBUMIN/GLOBULIN RATIO 0.6 (1.0-1.7); CREATININE 1.3 mg/dL (0.7-1.3); GFR 53.8; POTASSIUM 3.5 mmol/L (3.5-5.1); TOTAL BILIRUBIN 0.3 mg/dL (0.2-1.0); TOTAL PROTEIN 4.7 g/dL (6.4-8.2)
[2019-01-12] MEDS: AMMONIUM LACTATE 12% TOPICAL LOTION 226GM BOTTLE. TP SCH ×2 (09:00→21:21)
[2019-01-12] MEDS: IPRATRPIUM/ALBUTEROL 0.5/2.5MG 3 ML NEBU. NEB SCH ×2 (09:13→20:44)
[2019-01-12] MEDS: TORSEMIDE 20 MG TABLET. PO SCH (09:41)
[2019-01-12] MEDS: AMIODARONE HCL 200 MG TABLET PO SCH (09:41)
[2019-01-12] MEDS: TAMSULOSIN 0.4 MG CAP.ER.24H. PO SCH (09:41)
[2019-01-12] MEDS: metFORMIN 500 MG TABLET PO SCH ×2 (09:41→17:30)
[2019-01-12] MEDS: METOCLOPRAMIDE 5 MG TABLET PO SCH ×4 (09:41→21:20)
[2019-01-12] MEDS: buPROPion XL 150 MG TAB.ER.24H PO SCH (09:41)
[2019-01-12] MEDS: MEGESTROL 40 MG TABLET. PO SCH ×2 (09:41→21:21)
[2019-01-12] MEDS: LACTOBACILLUS RHAMNOSUS GG 1 CAPSULE. PO SCH ×2 (09:41→21:21)
[2019-01-12] MEDS: VANCOMYCIN 125 MG/2.5 ML ORAL SOLUTION. PO SCH ×4 (09:44→21:20)
[2019-01-12] MEDS ORDERED: ACETAMINOPHEN 325 MG TABLET PO PRN (14:00)
[2019-01-12] MEDS ORDERED: SALIVA STIMULANT AGENT MOUTHWASH 237ML BOTTLE. PO PRN (17:45)
[2019-01-12] MEDS ORDERED: SALIVA STIMULANT AGENT 44ML SPRAY BOTTLE. PO PRN (18:00)
[2019-01-12 18:45] VITALS: BP 80/55
[2019-01-12] MEDS: MIRTAZAPINE 7.5 MG TABLET. PO SCH (21:20)
--- NOTE | 2019-01-12 23:16 | PDOC ---
Exam Note: Dave Note: Please also refer to the separate dictated note~for this date of service dictated separately.~Patient seen individually. Discussed the patient with Nursing staff reviewed the chart.~Reviewed interim history and current functioning. Reviewed vital signs,~Labs/ Radiology~and current medications noted below. Continue current treatment with the changes noted in the dictated addendum note Assessment: Vital Signs/I&O: Vital Signs Date Time Temp Pulse Resp B/P (MAP) Pulse Ox O2 Delivery O2 Flow Rate FiO2 01/12/19 20:44 95 Room Air 01/12/19 18:45 98.9 91 20 80/55 (63) I & O 01/11/19 01/11/19 01/12/19 15:00 23:00 07:00 Intake Total 480 ml 480 ml 200 ml Output Total 1250 ml Balance 480 ml 480 ml -1050 ml Labs: Laboratory Tests Test 01/12/19 07:57 01/12/19 08:03 01/12/19 11:58 01/12/19 16:41 White Blood Count 10.1 x10^3/uL (4.0-11.0) Red Blood Count 2.90 x10^6/uL (4.30-5.70) L Hemoglobin 8.7 g/dL (13.0-17.5) L Hematocrit 25.6 % (39.0-53.0) L Mean Corpuscular Volume 88 fL (79-100) Mean Corpuscular Hemoglobin 30 pg (25-35) Mean Corpuscular Hemoglobin Concent 34 g/dL (31-37) Red Cell Distribution Width 14.2 % (11.5-14.5) Platelet Count 196 x10^3/uL (140-400) Neutrophils (%) (Auto) 82 % (31-73) H Lymphocytes (%) (Auto) 9 % (24-48) L Monocytes (%) (Auto) 9 % (0-9) Eosinophils (%) (Auto) 1 % (0-3) Basophils (%) (Auto) 0 % (0-3) Neutrophils # (Auto) 8.3 x10^3uL (1.8-7.7) H Lymphocytes # (Auto) 0.9 x10^3/uL (1.0-4.8) L Monocytes # (Auto) 0.9 x10^3/uL (0.0-1.1) Eosinophils # (Auto) 0.1 x10^3/uL (0.0-0.7) Basophils # (Auto) 0.0 x10^3/uL (0.0-0.2) Sodium Level 143 mmol/L (136-145) Potassium Level 3.5 mmol/L (3.5-5.1) Chloride Level 106 mmol/L (98-107) Carbon Dioxide Level 31 mmol/L (21-32) Anion Gap 6 (6-14) Blood Urea Nitrogen 32 mg/dL (8-26) H Creatinine 1.3 mg/dL (0.7-1.3) Estimated GFR (Cockcroft-Gault) 53.8 BUN/Creatinine Ratio 25 (6-20) H Glucose Level 102 mg/dL (70-99) H Calcium Level 8.0 mg/dL (8.5-10.1) L Total Bilirubin 0.3 mg/dL (0.2-1.0) Aspartate Amino Transferase (AST) 17 U/L (15-37) Alanine Aminotransferase (ALT) 8 U/L (16-63) L Alkaline Phosphatase 63 U/L (46-116) Total Protein 4.7 g/dL (6.4-8.2) L Albumin 1.7 g/dL (3.4-5.0) L Albumin/Globulin Ratio 0.6 (1.0-1.7) L Glucose (Fingerstick) 94 mg/dL (70-99) 162 mg/dL (70-99) H 155 mg/dL (70-99) H Test 01/12/19 20:46 Glucose (Fingerstick) 118 mg/dL (70-99) H Current Medications: Meds: Current Medications Medications (Trade) Dose Ordered Sig/Nikolay Route PRN Reason Start Time Stop Time Status Last Admin Dose Admin Acetaminophen (Tylenol) 650 mg PRN Q6HRS PRN PO PAIN / TEMP 01/12/19 14:00 01/12/19 14:22 I have reviewed the current psychotropics carefully including drug interactions. Risk benefit ratio favors no change other than as noted in my dictated progress note. Diagnosis: Problems: (1) Weakness generalized (2) Colitis (3) Severe protein-calorie malnutrition (4) Paroxysmal A-fib (5) Generalized weakness (6) Pleural effusion (7) Poorly controlled type 2 diabetes mellitus (8) Hypokalemia (9) Syncope (10) CKD (chronic kidney disease), stage III (11) Type 2 diabetes mellitus (12) Pulmonary emboli (13) Pneumonia (14) Clostridioides difficile infection SHAHBAZ GUTIERREZ MD Jan 12, 2019 23:16
[2019-01-12 23:39] VITALS: BP 103/64
[2019-01-13] MEDS: metroNIDAZOLE 500 MG TABLET PO SCH ×2 (06:23→13:57)
[2019-01-13] MEDS: METOPROLOL TART IMMED RELEASE 25 MG TABLET PO SCH ×3 (06:29→17:53)
[2019-01-13 06:33] VITALS: BP 124/71
[2019-01-13] MEDS: metFORMIN 500 MG TABLET PO SCH ×2 (08:44→16:29)
[2019-01-13] MEDS: LACTOBACILLUS RHAMNOSUS GG 1 CAPSULE. PO SCH ×2 (08:44→21:09)
[2019-01-13] MEDS: AMIODARONE HCL 200 MG TABLET PO SCH (08:44)
[2019-01-13] MEDS: TAMSULOSIN 0.4 MG CAP.ER.24H. PO SCH (08:44)
[2019-01-13] MEDS: METOCLOPRAMIDE 5 MG TABLET PO SCH ×4 (08:45→21:09)
[2019-01-13] MEDS: TORSEMIDE 20 MG TABLET. PO SCH (08:45)
[2019-01-13] MEDS: AMMONIUM LACTATE 12% TOPICAL LOTION 226GM BOTTLE. TP SCH ×2 (08:49→21:00)
[2019-01-13] MEDS: VANCOMYCIN 125 MG/2.5 ML ORAL SOLUTION. PO SCH ×4 (08:49→21:09)
[2019-01-13] MEDS: MEGESTROL 40 MG TABLET. PO SCH ×2 (08:49→21:09)
[2019-01-13] MEDS: buPROPion XL 150 MG TAB.ER.24H PO SCH (08:49)
[2019-01-13] MEDS: IPRATRPIUM/ALBUTEROL 0.5/2.5MG 3 ML NEBU. NEB SCH ×2 (10:07→20:57)
[2019-01-13 18:49] VITALS: BP 96/60
[2019-01-13] MEDS: MIRTAZAPINE 7.5 MG TABLET. PO SCH (21:09)
--- NOTE | 2019-01-13 21:45 | PDOC ---
Exam Note: Dave Note: Please also refer to the separate dictated note~for this date of service dictated separately.~Patient seen individually. Discussed the patient with Nursing staff reviewed the chart.~Reviewed interim history and current functioning. Reviewed vital signs,~Labs/ Radiology~and current medications noted below. Continue current treatment with the changes noted in the dictated addendum note Assessment: Vital Signs/I&O: Vital Signs Date Time Temp Pulse Resp B/P (MAP) Pulse Ox O2 Delivery O2 Flow Rate FiO2 01/13/19 21:01 98 Room Air 01/13/19 18:49 98.1 84 20 96/60 (72) I & O 01/12/19 01/12/19 01/13/19 15:00 23:00 07:00 Intake Total 660 ml 460 ml 300 ml Output Total 1400 ml 1200 ml Balance 660 ml -940 ml -900 ml Labs: Laboratory Tests Test 01/13/19 08:03 01/13/19 11:59 01/13/19 16:49 01/13/19 20:01 Glucose (Fingerstick) 105 mg/dL (70-99) H 203 mg/dL (70-99) H 139 mg/dL (70-99) H 165 mg/dL (70-99) H Current Medications: I have reviewed the current psychotropics carefully including drug interactions. Risk benefit ratio favors no change other than as noted in my dictated progress note. Diagnosis: Problems: (1) Weakness generalized (2) Colitis (3) Severe protein-calorie malnutrition (4) Paroxysmal A-fib (5) Generalized weakness (6) Pleural effusion (7) Poorly controlled type 2 diabetes mellitus (8) Hypokalemia (9) Syncope (10) CKD (chronic kidney disease), stage III (11) Type 2 diabetes mellitus (12) Pulmonary emboli (13) Pneumonia (14) Clostridioides difficile infection SHAHBAZ GUTIERREZ MD Jan 13, 2019 21:45
[2019-01-14 00:44] VITALS: BP 117/69
[2019-01-14] MEDS: METOPROLOL TART IMMED RELEASE 25 MG TABLET PO SCH ×5 (00:44→20:14)
--- NOTE | 2019-01-14 03:17 | PN ---
DATE: SUBJECTIVE: A 73-year-old male apparently been having some further diarrhea. The patient otherwise apparently came back with C. diff positive. He has been on vancomycin orally. We will take him off the metronidazole that he was supposed to be getting IV, was getting it orally now, we will discontinue that. Continue monitoring him. Other than that, the patient may need to be switched to either another anti-C. difficile organism antibiotic or consider fecal implant. OBJECTIVE: VITAL SIGNS: Blood pressure 124/71, respiratory rate 18, pulse 70, and afebrile. LUNGS: Diminished, but clear. CARDIOVASCULAR: Stable. ABDOMEN: Soft, diffuse tenderness in the left lower quadrant. IMPRESSION: Clostridium difficile colitis, generalized weakness, depression and continue with antidepressant therapy and further evaluation on him as indicated. AMARJIT TRIMBLE MD DR: REJI/kevin JOB#: [id number] / [id number]
--- NOTE | 2019-01-14 04:55 | PN ---
DATE: 01/12/2019 PSYCHIATRIC PROGRESS NOTE This late entry 01/12/2019 covers elements not covered in my initial note. SUBJECTIVE: I met with the patient evening of 01/12/2019. Per nursing report, the patient remains somewhat withdrawn, isolative, but perhaps a little less so than before, but he stays in his room with the drapes drawn. REVIEW OF SYSTEMS: Positive for tiredness. No CV, , pulmonary, eye system symptoms on review. MENTAL STATUS EXAM: Oriented reasonably. Speech is coherent, has some latency, often responses monosyllabic. Abstraction fair, computation impaired, language function intact. Mood and affect still withdrawn. LABORATORY DATA: Reviewed. IMPRESSION: Unchanged from initial note. PLAN: No change from initial note. MAN Randy GUTIERREZ MD DR: ISSAC/kevin JOB#: [id number] / [id number]
--- NOTE | 2019-01-14 05:00 | PN ---
DATE: 01/11/2019 PSYCHIATRIC PROGRESS NOTE This late entry 01/11/2019 covers elements not covered in my initial note. SUBJECTIVE: I met with the patient evening of 01/11/2019. We have started the patient on Wellbutrin-XL 150 mg a day, Remeron 7.5 mg p.o. at bedtime. He still remains withdrawn, somewhat apathetic, isolative. I met with him in his room. REVIEW OF SYSTEMS: Positive for tiredness. No CV, , pulmonary, eye system symptoms on review. MENTAL STATUS EXAM: Oriented reasonably. Speech moderate latency, often responses monosyllabic. Abstraction fair, computation impaired, language function intact. Mood and affect withdrawn. LABORATORY DATA: Reviewed. IMPRESSION: Major depressive disorder, recurrent; anxiety disorder, unspecified. PLAN: No change from initial note. May need to increase Wellbutrin in due course. MAN Randy GUTIERREZ MD DR: ISSAC/kevin JOB#: [id number] / [id number]
[2019-01-14 05:26] VITALS: BP 117/67
[2019-01-14] MEDS ORDERED: buPROPion XL 150 MG TAB.ER.24H PO ONE (10:30)
[2019-01-14] MEDS ORDERED: MEGESTROL 40 MG TABLET. PO ONE (10:30)
[2019-01-14] MEDS: METOCLOPRAMIDE 5 MG TABLET PO SCH ×4 (10:36→20:16)
[2019-01-14] MEDS: buPROPion XL 150 MG TAB.ER.24H PO SCH (10:36)
[2019-01-14] MEDS: LACTOBACILLUS RHAMNOSUS GG 1 CAPSULE. PO SCH ×2 (10:36→20:14)
[2019-01-14] MEDS: MEGESTROL 40 MG TABLET. PO SCH ×2 (10:36→20:14)
[2019-01-14] MEDS: AMIODARONE HCL 200 MG TABLET PO SCH (10:36)
[2019-01-14] MEDS: TAMSULOSIN 0.4 MG CAP.ER.24H. PO SCH (10:36)
[2019-01-14] MEDS: metFORMIN 500 MG TABLET PO SCH ×2 (10:36→16:29)
[2019-01-14] MEDS: VANCOMYCIN 125 MG/2.5 ML ORAL SOLUTION. PO SCH ×4 (10:36→20:16)
[2019-01-14] MEDS: TORSEMIDE 20 MG TABLET. PO SCH (10:37)
[2019-01-14] MEDS: AMMONIUM LACTATE 12% TOPICAL LOTION 226GM BOTTLE. TP SCH ×2 (10:39→20:16)
[2019-01-14] MEDS: IPRATRPIUM/ALBUTEROL 0.5/2.5MG 3 ML NEBU. NEB SCH ×2 (10:59→22:48)
[2019-01-14 17:52] VITALS: BP 100/65
[2019-01-14] MEDS: MIRTAZAPINE 7.5 MG TABLET. PO SCH (20:13)
[2019-01-14 20:27] VITALS: BP 101/58
--- NOTE | 2019-01-14 21:07 | PDOC ---
Exam Note: Dave Note: Please also refer to the separate dictated note~for this date of service dictated separately.~Patient seen individually. Discussed the patient with Nursing staff reviewed the chart.~Reviewed interim history and current functioning. Reviewed vital signs,~Labs/ Radiology~and current medications noted below. Continue current treatment with the changes noted in the dictated addendum note Assessment: Vital Signs/I&O: Vital Signs Date Time Temp Pulse Resp B/P (MAP) Pulse Ox O2 Delivery O2 Flow Rate FiO2 01/14/19 20:27 98.3 106 18 101/58 (72) 95 Room Air I & O 01/13/19 01/13/19 01/14/19 15:00 23:00 07:00 Intake Total 360 ml 240 ml Output Total 650 ml 1150 ml Balance 360 ml -410 ml -1150 ml Labs: Laboratory Tests Test 01/14/19 06:14 01/14/19 08:02 01/14/19 12:03 01/14/19 19:31 Glucose (Fingerstick) 102 mg/dL (70-99) H 138 mg/dL (70-99) H 195 mg/dL (70-99) H 174 mg/dL (70-99) H Current Medications: I have reviewed the current psychotropics carefully including drug interactions. Risk benefit ratio favors no change other than as noted in my dictated progress note. Diagnosis: Problems: (1) Weakness generalized (2) Colitis (3) Severe protein-calorie malnutrition (4) Paroxysmal A-fib (5) Generalized weakness (6) Pleural effusion (7) Poorly controlled type 2 diabetes mellitus (8) Hypokalemia (9) Syncope (10) CKD (chronic kidney disease), stage III (11) Type 2 diabetes mellitus (12) Pulmonary emboli (13) Pneumonia (14) Clostridioides difficile infection SHAHBAZ GUTIERREZ MD Jan 14, 2019 21:07
--- NOTE | 2019-01-15 01:17 | PN ---
DATE: 01/13/2019 PSYCHIATRIC PROGRESS NOTE. This late entry of 01/13/2019 covers the elements not covered in my initial note. SUBJECTIVE: I met with the patient in the evening of 01/13/2019. The patient does have C. diff positive but subjectively, states he is doing better. Nursing staff indicate continues to be withdrawn. REVIEW OF SYSTEMS: Positive for the diarrhea. No CV, , pulmonary, eye system symptoms on review. MENTAL STATUS EXAM: The patient is reasonably oriented. Speech has some latency, coherent, often responses monosyllabic. Abstraction fair, computation impaired, language function intact. Mood and affect still somewhat depressed. LABORATORY DATA: Reviewed. IMPRESSION: Major depressive disorder, recurrent; anxiety disorder, unspecified. Rest unchanged including Clostridium difficile colitis. PLAN: Continue Wellbutrin-XL 150 mg a day, Remeron 7.5 mg at bedtime, but perhaps starting in a day or so, we will increase the Wellbutrin-XL to 300 mg a day once the C. diff colitis is resolved and if mood symptoms persist. MAN Randy GUTIERREZ MD DR: ISSAC/kevin JOB#: [id number] / [id number]
[2019-01-15 06:25] VITALS: BP 129/72
[2019-01-15] MEDS: METOPROLOL TART IMMED RELEASE 25 MG TABLET PO SCH ×3 (06:28→17:11)
[2019-01-15] MEDS ORDERED: SALIVA STIMULANT AGENT MOUTHWASH 237ML BOTTLE. PO PRN (06:30)
[2019-01-15] MEDS: TORSEMIDE 20 MG TABLET. PO SCH (07:45)
[2019-01-15] MEDS: METOCLOPRAMIDE 5 MG TABLET PO SCH ×4 (07:45→19:34)
[2019-01-15] MEDS: AMIODARONE HCL 200 MG TABLET PO SCH (07:45)
[2019-01-15] MEDS: metFORMIN 500 MG TABLET PO SCH ×2 (07:45→17:10)
[2019-01-15] MEDS: LACTOBACILLUS RHAMNOSUS GG 1 CAPSULE. PO SCH ×2 (07:45→19:34)
[2019-01-15] MEDS: MEGESTROL 40 MG TABLET. PO SCH ×2 (07:45→19:34)
[2019-01-15] MEDS: TAMSULOSIN 0.4 MG CAP.ER.24H. PO SCH (07:46)
[2019-01-15] MEDS: VANCOMYCIN 125 MG/2.5 ML ORAL SOLUTION. PO SCH ×4 (07:46→20:24)
[2019-01-15] MEDS: AMMONIUM LACTATE 12% TOPICAL LOTION 226GM BOTTLE. TP SCH ×2 (07:47→21:00)
[2019-01-15] MEDS: buPROPion XL 300 MG TAB.ER.24H. PO SCH (07:47)
[2019-01-15] MEDS: IPRATRPIUM/ALBUTEROL 0.5/2.5MG 3 ML NEBU. NEB SCH ×2 (10:39→21:00)
[2019-01-15] MEDS: MIRTAZAPINE 7.5 MG TABLET. PO SCH (19:34)
--- NOTE | 2019-01-15 21:04 | PDOC ---
Exam Note: Dave Note: Please also refer to the separate dictated note~for this date of service dictated separately.~Patient seen individually. Discussed the patient with Nursing staff reviewed the chart.~Reviewed interim history and current functioning. Reviewed vital signs,~Labs/ Radiology~and current medications noted below. Continue current treatment with the changes noted in the dictated addendum note Assessment: Vital Signs/I&O: Vital Signs Date Time Temp Pulse Resp B/P (MAP) Pulse Ox O2 Delivery O2 Flow Rate FiO2 01/15/19 17:11 101 129/72 01/15/19 08:31 Room Air 01/15/19 06:25 97.9 20 94 I & O 01/14/19 01/14/19 01/15/19 15:00 23:00 07:00 Intake Total 240 ml 200 ml Output Total 650 ml 1100 ml Balance 240 ml -650 ml -900 ml Labs: Laboratory Tests Test 01/15/19 11:40 01/15/19 19:59 Glucose (Fingerstick) 183 mg/dL (70-99) H 126 mg/dL (70-99) H Current Medications: Meds: Current Medications Medications (Trade) Dose Ordered Sig/Nikolay Route PRN Reason Start Time Stop Time Status Last Admin Dose Admin Bupropion HCl (Wellbutrin Xl) 300 mg DAILY PO 01/15/19 09:00 01/15/19 07:47 I have reviewed the current psychotropics carefully including drug interactions. Risk benefit ratio favors no change other than as noted in my dictated progress note. Diagnosis: Problems: (1) Weakness generalized (2) Colitis (3) Severe protein-calorie malnutrition (4) Paroxysmal A-fib (5) Generalized weakness (6) Pleural effusion (7) Poorly controlled type 2 diabetes mellitus (8) Hypokalemia (9) Syncope (10) CKD (chronic kidney disease), stage III (11) Type 2 diabetes mellitus (12) Pulmonary emboli (13) Pneumonia (14) Clostridioides difficile infection SHAHBAZ GUTIERREZ MD Jan 15, 2019 21:04
--- NOTE | 2019-01-15 22:47 | PN ---
DATE: 01/14/2019 PSYCHIATRIC PROGRESS NOTE This late entry of 01/14/2019 covers the elements not covered in my initial note. SUBJECTIVE: I met with the patient in the evening of 01/14/2019. Overall, per nursing report, the patient remains depressed, withdrawn, draws his blinds and drapes. He is being treated for Clostridium difficile colitis. REVIEW OF SYSTEMS: Positive for tiredness. No CV, , pulmonary, eye system symptoms on review. Diarrhea is better. MENTAL STATUS EXAM: Oriented to himself and situation. Speech is coherent, abstraction fair, computation impaired, language function intact. Mood and affect still depressed, withdrawn. No suicidal or homicidal ideation. LABORATORY DATA: Reviewed. IMPRESSION: Major depressive disorder, recurrent; anxiety disorder, unspecified. Rest unchanged. PLAN: Increase Wellbutrin-XL from 150 mg a day to 300 mg a day. Continue Remeron 7.5 mg at bedtime. Rest unchanged for now. MAN Randy GUTIERREZ MD DR: ISSAC/kevin JOB#: [id number] / [id number]
[2019-01-16] MEDS: METOPROLOL TART IMMED RELEASE 25 MG TABLET PO SCH ×4 (06:00→17:08)
[2019-01-16 06:45] VITALS: BP 119/72
[2019-01-16] MEDS: AMMONIUM LACTATE 12% TOPICAL LOTION 226GM BOTTLE. TP SCH ×2 (09:00→21:00)
[2019-01-16] MEDS: AMIODARONE HCL 200 MG TABLET PO SCH (09:02)
[2019-01-16] MEDS: METOCLOPRAMIDE 5 MG TABLET PO SCH (09:02)
[2019-01-16] MEDS: metFORMIN 500 MG TABLET PO SCH (09:02)
[2019-01-16] MEDS: LACTOBACILLUS RHAMNOSUS GG 1 CAPSULE. PO SCH ×2 (09:02→21:39)
[2019-01-16] MEDS: buPROPion XL 300 MG TAB.ER.24H. PO SCH (09:03)
[2019-01-16] MEDS: TORSEMIDE 20 MG TABLET. PO SCH (09:03)
[2019-01-16] MEDS: TAMSULOSIN 0.4 MG CAP.ER.24H. PO SCH (09:03)
[2019-01-16] MEDS: MEGESTROL 40 MG TABLET. PO SCH ×2 (09:03→21:39)
[2019-01-16] MEDS: VANCOMYCIN 125 MG/2.5 ML ORAL SOLUTION. PO SCH ×4 (09:04→21:00)
[2019-01-16] MEDS: IPRATRPIUM/ALBUTEROL 0.5/2.5MG 3 ML NEBU. NEB SCH ×2 (09:33→21:09)
[2019-01-16] MEDS ORDERED: HYDROcodone/APAP 5/325MG 1 TAB TABLET PO PRN (10:45)
[2019-01-16] MEDS: CARBIDOPA/LEVODOPA 10/100MG TABLET PO SCH ×2 (14:16→21:39)
[2019-01-16] MEDS ORDERED: CHOLECALCIFEROL (VITAMIN D3) 50,000 UNIT CAPSULE PO SCH (16:00)
[2019-01-16 18:44] VITALS: BP 100/66
--- NOTE | 2019-01-16 21:31 | PDOC ---
Exam Note: Dave Note: Please also refer to the separate dictated note~for this date of service dictated separately.~Patient seen individually. Discussed the patient with Nursing staff reviewed the chart.~Reviewed interim history and current functioning. Reviewed vital signs,~Labs/ Radiology~and current medications noted below. Continue current treatment with the changes noted in the dictated addendum note Assessment: Vital Signs/I&O: Vital Signs Date Time Temp Pulse Resp B/P (MAP) Pulse Ox O2 Delivery O2 Flow Rate FiO2 01/16/19 21:09 95 Room Air 01/16/19 18:44 97.5 108 16 100/66 (77) I & O 01/15/19 01/15/19 01/16/19 15:00 23:00 07:00 Intake Total 200 ml 50 ml Balance 200 ml 50 ml Current Medications: Meds: Current Medications Medications (Trade) Dose Ordered Sig/Nikolay Route PRN Reason Start Time Stop Time Status Last Admin Dose Admin Vitamin D (Vitamin D3) 50,000 unit QWE PO 01/16/19 16:00 01/16/19 16:01 Vancomycin HCl (Vancomycin Oral Solution) 250 mg [id number] PO 01/16/19 13:00 01/16/19 17:00 Carbidopa/Levodopa (Sinemet 10/100) 1 tab Q8HRS PO 01/16/19 14:00 01/16/19 14:16 Acetaminophen/ Hydrocodone Bitart (Lortab 5/325) 1 tab PRN Q6HRS PRN PO PAIN 01/16/19 10:45 01/16/19 13:19 I have reviewed the current psychotropics carefully including drug interactions. Risk benefit ratio favors no change other than as noted in my dictated progress note. Diagnosis: Problems: (1) Weakness generalized (2) Colitis (3) Severe protein-calorie malnutrition (4) Paroxysmal A-fib (5) Generalized weakness (6) Pleural effusion (7) Poorly controlled type 2 diabetes mellitus (8) Hypokalemia (9) Syncope (10) CKD (chronic kidney disease), stage III (11) Type 2 diabetes mellitus (12) Pulmonary emboli (13) Pneumonia (14) Clostridioides difficile infection SHAHBAZ GUTIERREZ MD Jan 16, 2019 21:31
[2019-01-16] MEDS: MIRTAZAPINE 7.5 MG TABLET. PO SCH (21:39)
[2019-01-17] MEDS: METOPROLOL TART IMMED RELEASE 25 MG TABLET PO SCH ×3 (00:19→13:44)
[2019-01-17] MEDS: CARBIDOPA/LEVODOPA 10/100MG TABLET PO SCH ×2 (06:28→13:45)
[2019-01-17 06:30] VITALS: BP 119/72
[2019-01-17 07:43] LABS: CALCIUM 8.3 mg/dL (8.5-10.1); CREATININE 1.3 mg/dL (0.7-1.3); GFR 53.8; POTASSIUM 3.2 mmol/L (3.5-5.1)
[2019-01-17 08:01] LABS: BASO # 0.1 x10^3/uL (0.0-0.2); BASO % 2 % (0-3); EOS # 0.1 x10^3/uL (0.0-0.7); EOS % 1 % (0-3); HEMATOCRIT 29.9 % (39.0-53.0); HEMOGLOBIN 9.8 g/dL (13.0-17.5); LYMPH % 14 % (24-48); MEAN CORPUSCULAR HEMOGLOBIN 29 pg (25-35); MEAN CORPUSCULAR HGB CONC 33 g/dL (31-37); MEAN CORPUSCULAR VOLUME 89 fL (79-100); MONO # 0.5 x10^3/uL (0.0-1.1); MONO % 7 % (0-9); NEUT # 5.5 x10^3uL (1.8-7.7); NEUT % 76 % (31-73); PLATELET COUNT 297 x10^3/uL (140-400); RED BLOOD COUNT 3.35 x10^6/uL (4.30-5.70); RED CELL DISTRIBUTION WIDTH 14.4 % (11.5-14.5); WHITE BLOOD COUNT 7.2 x10^3/uL (4.0-11.0)
--- NOTE | 2019-01-17 08:21 | PN ---
DATE: 01/15/2019 PSYCHIATRIC PROGRESS NOTE This late entry 01/15/2019 covers elements not covered in my initial note. SUBJECTIVE: I met with the patient in the evening. Per nursing report, the patient still remains withdrawn, somewhat depressed and isolative. Some of this can be attributed to his C. diff, but looks like his mood symptoms contribute a significant part of this. REVIEW OF SYSTEMS: Ambulation impaired, lying in bed. No CV, , pulmonary, eye system symptoms on review, still had some intermittent diarrhea due to C. diff. MENTAL STATUS EXAM: Oriented reasonably. Speech has some latency, coherent, often responses monosyllabic. Abstraction fair, computation impaired, language function intact. Mood and affect withdrawn. LABORATORY DATA: Reviewed. IMPRESSION: Major depressive disorder, recurrent; anxiety disorder, unspecified. Rest unchanged including Clostridium difficile colitis. PLAN: The patient's Wellbutrin-XL has been increased to 300 mg a day. We will continue this. Rest unchanged from initial note. MAN Randy GUTIERREZ MD DR: ISSAC/kevin JOB#: [id number] / [id number]
[2019-01-17] MEDS: MEGESTROL 40 MG TABLET. PO SCH (08:49)
[2019-01-17] MEDS: TAMSULOSIN 0.4 MG CAP.ER.24H. PO SCH (08:49)
[2019-01-17] MEDS: LACTOBACILLUS RHAMNOSUS GG 1 CAPSULE. PO SCH (08:49)
[2019-01-17] MEDS: TORSEMIDE 20 MG TABLET. PO SCH (08:49)
[2019-01-17] MEDS: AMIODARONE HCL 200 MG TABLET PO SCH (08:50)
[2019-01-17] MEDS: VANCOMYCIN 125 MG/2.5 ML ORAL SOLUTION. PO SCH ×2 (08:50→13:45)
[2019-01-17] MEDS: AMMONIUM LACTATE 12% TOPICAL LOTION 226GM BOTTLE. TP SCH (08:51)
[2019-01-17] MEDS: buPROPion XL 300 MG TAB.ER.24H. PO SCH (08:51)
[2019-01-17] MEDS: IPRATRPIUM/ALBUTEROL 0.5/2.5MG 3 ML NEBU. NEB SCH (10:28)
[2019-01-17] MEDS ORDERED: POTASSIUM CHLORIDE 10 MEQ TABLET.ER. PO SCH (13:00)
[2019-01-17 15:40] VITALS: BP 107/68
--- NOTE | 2019-01-18 11:30 | PN ---
DATE: SUBJECTIVE: The patient is a 73-year-old gentleman in with colitis, C. difficile colitis. He says he is feeling a little better today. He is on his vancomycin for his C. difficile. Blood pressure 119/72, respiratory rate 18, pulse 108, afebrile. The patient tends to be a little bit more alert. His voice is fairly weak, possibly from his Parkinson's disease. He has a resting tremor. We started him on Sinemet 10/100, consulted with Neurology to evaluate this as well and make further evaluation. Dr. Abrams has been kind enough to review the patient in terms of his major depression disorder and has adjusted his medications accordingly. OBJECTIVE: GENERAL: The patient in turn is resting fairly comfortably. LUNGS: Diminished, but clear. CARDIOVASCULAR: Regular sinus rhythm. ABDOMEN: Soft, nontender. He seems to be making good. Diarrhea has pretty much stopped and has had no bowel movements yesterday and maybe just 1 today, so that is markedly improved. He continues to make slow, but steady progress in a rehab care. IMPRESSION: Therefore, C. difficile colitis, colitis as well as Parkinson's disease as well as major depression, anemia of chronic disease, hypokalemia. PLAN: Continue to monitor the patient and give him additional potassium supplementation. AMARJIT TRIMBLE MD DR: REJI/kevin JOB#: [id number] / [id number]
--- NOTE | 2019-01-18 19:01 | PN ---
DATE: 01/16/2019 PSYCHIATRIC PROGRESS NOTE This late entry 01/16/2019 covers elements not covered in my initial note. SUBJECTIVE: I met with the patient in the evening. Discussed with nursing staff, reviewed the chart. Reportedly, the patient's visited and he had a slight improvement in mood. Per nursing report from a psychiatric standpoint, he is doing "pretty good." REVIEW OF SYSTEMS: Still impaired ambulation, tiredness. No CV, , pulmonary, eye system symptoms on review. Diarrhea has improved. MENTAL STATUS EXAM: Reasonably oriented. Speech is coherent. He was aware of the football game. Abstraction fair, computation impaired, still depressed, but slightly more animated than before. No suicidal or homicidal ideation. No psychotic symptoms. LABORATORY DATA: Reviewed. IMPRESSION: Major depressive disorder; anxiety disorder, unspecified. Rest unchanged. PLAN: No change from initial note. MAN Randy GUTIERREZ MD DR: ISSAC/kevin JOB#: [id number] / [id number]
--- NOTE | 2019-01-19 17:02 | DS ---
DATE OF DISCHARGE: 01/17/2019 HOSPITAL SUMMARY: The patient was placed on a skilled unit for generalized weakness. The patient had been in with Clostridium difficile colitis and received further physical and occupational therapy. The patient was ambulatory with assistance. The patient made relatively good progress during the rest of his hospitalization. He did have an elevated heart rate; although, he was given additional metoprolol to slow it down, it brought down his blood pressure and therefore, we had to adjust that accordingly. However, at the time of discharge, the patient's stools had come down to just one a day and he was making fairly good progress. He was still very weak, but he still required aggressive physical and occupational therapy, which he had received here in the skilled unit and then to be continued out at the [facility]. The patient also was noted to be very depressed and he was seen by the eminent psychiatrist, Dr. Abrams, who made timely suggestions about his care and we continued to have him adjusted on his antidepressant medications. He made excellent progress there. The patient made good progress during the rest of his hospitalization and he was discharged to the care of the rehab unit at the [facility] for continued care there. DISCHARGE DIAGNOSES: Clostridium difficile colitis, diarrhea, major depression, generalized weakness, Parkinson's disease, anemia of chronic disease, hypokalemia. The patient should be followed up with his neurologist, Dr. Weeks, maintained on his anti-parkinsonian medications of which he was on and seems to be making some progress with it by the time he discharge along with his Wellbutrin. His metformin was also discontinued as it might have been contributing to his diarrhea, but he also had type 2 diabetes and it should be monitored obviously with Accu-Cheks as well as with monitoring sliding scale there at the nursing facility. AMARJIT TRIMBLE MD DR: REJI/kevin JOB#: [id number] / [id number]
== END 2019-01-17 16:00 | DRG 371 ==
LOC: LND 14:10
PROVIDERS: ADMIT Family Medicine; ATTEND Family Medicine
DX: A04.72 Enterocolitis due to Clostridium difficile, not specified as recurrent (principal); E43 Unspecified severe protein-calorie malnutrition; I26.99 Other pulmonary embolism without acute cor pulmonale; J18.9 Pneumonia, unspecified organism; F33.2 Major depressive disorder, recurrent severe without psychotic features; J90 Pleural effusion, not elsewhere classified; D63.8 Anemia in other chronic diseases classified elsewhere; E11.22 Type 2 diabetes mellitus with diabetic chronic kidney disease; E11.65 Type 2 diabetes mellitus with hyperglycemia; E78.00 Pure hypercholesterolemia, unspecified; E87.6 Hypokalemia; G20 Parkinson's disease; F41.9 Anxiety disorder, unspecified; G47.00 Insomnia, unspecified; I48.0 Paroxysmal atrial fibrillation; I95.1 Orthostatic hypotension; N18.3 Chronic kidney disease, stage 3 (moderate); N40.0 Benign prostatic hyperplasia without lower urinary tract symptoms; Z66 Do not resuscitate; Z86.711 Personal history of pulmonary embolism; Z86.73 Personal history of transient ischemic attack (TIA), and cerebral infarction without residual deficits; Z91.81 History of falling; Z95.1 Presence of aortocoronary bypass graft; Z87.891 Personal history of nicotine dependence; Z68.24 Body mass index [BMI] 24.0-24.9, adult
CPT/HCPCS: 36415; 80048; 80053; 82947; 85025; 87493; 94640; 94760; J7620; J8597; 97110; 97116; 97530; 97535